=== PATIENT | female | born 1945 | race Caucasian/White ===

== ENCOUNTER 2018-10-16 15:57 | Outpatient (REF) | payer MEDICARE, BC, SELFPAY ==
[2018-10-16 21:02] LABS: COMMENT (LAB VIEW ONLY) 125.28 mg/dL
[2018-10-16 21:07] LABS: Anion Gap 9.3 mmol/L (3-11); BUN 12 mg/dL (7-18); CO2 30.7 mmol/L (21.0-32.0); CREATININE 0.68 mg/dL (0.55-1.02); Calcium 9.5 mg/dL (8.5-10.1); Chloride 98 mmol/L (98-107); Glucose 208 mg/dL (70-100); Potassium 4.6 mmol/L (3.5-5.1); Sodium 138 mmol/L (136-145); TSH 2.16 uIU/mL (0.358-3.74)
== END 2018-10-16 16:17 ==
LOC: NCHCN 15:57
PROVIDERS: PCP Internal Medicine; Visit Provider Registered Nurse
DX: E03.9 Hypothyroidism, unspecified (principal); E10.9 Type 1 diabetes mellitus without complications
CPT/HCPCS: 80048; 82043; 82570; 84443

== ENCOUNTER 2019-11-16 15:22 | Outpatient (REF) | payer MEDICARE, BC, SELFPAY ==
[2019-11-16 21:40] LABS: Anion Gap 9.2 mmol/L (3-11); BUN 10 mg/dL (7-18); CO2 27.8 mmol/L (21.0-32.0); CREATININE 0.71 mg/dL (0.55-1.02); Calcium 9.7 mg/dL (8.5-10.1); Chloride 101 mmol/L (98-107); Glucose 126 mg/dL (74-106); Sodium 138 mmol/L (136-145)
[2019-11-16 21:57] LABS: COMMENT (LAB VIEW ONLY) 127.81 mg/dL; Microalb ug/mg Crea 7.9 ug/mg Cr
== END 2019-11-16 15:42 ==
LOC: NCHCN 15:22
PROVIDERS: PCP Internal Medicine; Visit Provider Registered Nurse
DX: E10.9 Type 1 diabetes mellitus without complications (principal)
CPT/HCPCS: 80048; 82043; 82570

== ENCOUNTER 2020-06-27 14:16 | Outpatient (REF) | payer MEDICARE, BC, SELFPAY ==
[2020-06-27 13:48] LABS: TSH (W/Ref FT4) 0.88 uIU/mL (0.36-3.74)
== END 2020-06-27 14:36 ==
LOC: NCHCN 14:16
PROVIDERS: PCP Internal Medicine; Visit Provider Registered Nurse
DX: E03.9 Hypothyroidism, unspecified (principal)
CPT/HCPCS: 84443

== ENCOUNTER 2020-12-04 13:09 | Outpatient (REF) | payer MEDICARE, BC, SELFPAY ==
[2020-12-04 14:02] LABS: Anion Gap 9.2 mmol/L (3-11); BUN 9 mg/dL (7-18); CO2 28.8 mmol/L (21.0-32.0); CREATININE 0.6 mg/dL (0.55-1.02); Calcium 9.3 mg/dL (8.5-10.1); Chloride 103 mmol/L (98-107); Glucose 129 mg/dL (74-106); Potassium 4.5 mmol/L (3.5-5.1); Sodium 141 mmol/L (136-145)
[2020-12-04 14:27] LABS: COMMENT (LAB VIEW ONLY) 49.04 mg/dL; Microalb ug/mg Crea 7.7 ug/mg Cr
== END 2020-12-04 13:10 | disposition home or self-care (01) ==
LOC: NCHCN 13:09
PROVIDERS: PCP Internal Medicine; Visit Provider Registered Nurse
DX: E10.9 Type 1 diabetes mellitus without complications (principal); Z68.27 Body mass index [BMI] 27.0-27.9, adult
CPT/HCPCS: 80048; 82043; 82570

== ENCOUNTER 2021-12-07 14:41 | Outpatient (REF) | payer MEDICARE, SELFPAY ==
[2021-12-07 15:58] LABS: COMMENT (LAB VIEW ONLY) 27.44 mg/dL
== END 2021-12-07 14:42 | disposition home or self-care (01) ==
LOC: NCHCN 14:41
PROVIDERS: PCP Internal Medicine; Visit Provider Nurse Practitioner Family
DX: E10.9 Type 1 diabetes mellitus without complications (principal)
CPT/HCPCS: 82043; 82570

== ENCOUNTER 2022-03-12 15:06 | Outpatient (REF) | payer MEDICARE, SELFPAY ==
[2022-03-12 15:53] LABS: HCT 44.3 % (36.0-46.0); HGB 15.3 g/dL (11.2-15.7); MCH 36.3 pg (27.0-33.0); MCHC 34.5 % (32.0-36.0); MCV 105 fL (80-95); MPV 9.9 fL (8.0-11.0); Platelet Count 326 10^3/uL (130-400); RBC 4.22 10^6/uL (3.93-5.22); RDW 12.5 % (11.7-14.6); RDW-SD 48.6 fL; WBC 7.06 10^3/uL (4.4-10.8)
[2022-03-12 16:33] LABS: Hemoglobin A1C 7.5 % (<5.7)
[2022-03-12 16:39] LABS: ALT 24 U/L (14-59); AST 19 U/L (15-37); Albumin 3.5 g/dL (3.4-5.0); Alkaline Phosphatase 113 U/L (46-116); Anion Gap 8.6 mmol/L (3-11); BUN 13 mg/dL (7-18); Bilirubin, Total 0.4 mg/dL (0.2-1.0); CO2 29.4 mmol/L (21.0-32.0); CREATININE 0.6 mg/dL (0.55-1.02); Calcium 9.4 mg/dL (8.5-10.1); Calculated LDL 73 mg/dL (<100); Chloride 101 mmol/L (98-107); Cholesterol 144 mg/dL (<200); Estimated GFR 93.55 (mL/min/1.73m2); Glucose 218 mg/dL (74-106); HDL Cholesterol 52 mg/dL (40-60); Potassium 4.2 mmol/L (3.5-5.1); Sodium 139 mmol/L (136-145); TSH 0.75 uIU/mL (0.36-3.74); Total Protein 7.1 g/dL (6.4-8.2); Triglyceride 99 mg/dL (<150)
[2022-03-12 22:36] LABS: Albumin, Ur < 0.6 mg/dL (See Note); Creatinine, Ur 35.3 mg/dL (See Note)
== END 2022-03-12 15:07 | disposition home or self-care (01) ==
LOC: NCHCN 15:06
PROVIDERS: PCP Internal Medicine; Visit Provider Nurse Practitioner Family
DX: E10.65 Type 1 diabetes mellitus with hyperglycemia (principal); E03.9 Hypothyroidism, unspecified
CPT/HCPCS: 80053; 80061; 85027; 82043; 82570; 83036; 84443

== ENCOUNTER → 2022-04-19 01:53 | Outpatient (CLI) | payer MEDICARE, SELFPAY ==
--- NOTE | 2022-04-19 10:45 | DI.MRI_ITS ---
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 COMPARISON: No exams were available for comparison FINDINGS: VENTRICLES AND EXTRA AXIAL SPACES: Normal in size and morphology for the patient's age. MIDLINE SHIFT: None. CEREBRAL PARENCHYMA: Moderate atrophy, greater in the frontal lobes. Scattered high signal foci in t he white matter consistent with small vessel disease. No focus of restricted diffusion to suggest ac freddie infarct. No space-occupying lesion identified. HEMORRHAGE: None. BRAINSTEM/CEREBELLUM: Normal. VISUALIZED PARANASAL SINUSES/MASTOIDS:Clear. [place] OF CISSE: Normal flow void. PITUITARY GLAND: Unremarkable. OTHER FINDINGS: None. IMPRESSION: Atrophy greatest in the frontal lobes. White matter changes of small vessel disease. DATA REPOSITORY:
== END ==
PROVIDERS: PCP Nurse Practitioner Family; Visit Provider Nurse Practitioner Family
DX: G31.84 Mild cognitive impairment of uncertain or unknown etiology (principal)
CPT/HCPCS: 70551

== ENCOUNTER 2022-09-13 09:39 | Outpatient (REF) | payer MEDICARE, SELFPAY ==
[2022-09-13 15:45] LABS: Calculated LDL 65 mg/dL (<100); Cholesterol 140 mg/dL (<200); HDL Cholesterol 59 mg/dL (40-60); Triglyceride 83 mg/dL (<150)
== END 2022-09-13 09:40 | disposition home or self-care (01) ==
LOC: LBN 09:39
PROVIDERS: PCP Nurse Practitioner Family; Visit Provider Internal Medicine Endocrinology, Diabetes & Metabolism
DX: E11.65 Type 2 diabetes mellitus with hyperglycemia (principal)
CPT/HCPCS: 80061

== ENCOUNTER 2023-05-16 22:26 | Outpatient (REF) | payer MEDICARE, SELFPAY ==
[2023-05-16 21:59] LABS: COMMENT (LAB VIEW ONLY) 127.63 mg/dL; Microalb ug/mg Crea 12.1 ug/mg Cr
== END 2023-05-16 22:27 | disposition home or self-care (01) ==
LOC: NCHCN 22:26
PROVIDERS: PCP Nurse Practitioner Family; Visit Provider Nurse Practitioner Family
DX: E10.9 Type 1 diabetes mellitus without complications (principal)
CPT/HCPCS: 82043; 82570

== ENCOUNTER 2023-05-27 20:53 | Outpatient (REF) | payer MEDICARE, SELFPAY ==
[2023-05-27 20:28] LABS: Abs Immature Grans 0.01 10^3/uL (0.0-0.06); Absolute Basophil Count 0.08 10^3/uL (0.0-0.2); Absolute Eosinophil Count 0.11 10^3/uL (0.0-0.7); Absolute Neutrophil Count 6.75 10^3/uL (1.2-6.7); Eosinophils % 1.3; HCT 44.4 % (36.0-46.0); HGB 14.5 g/dL (11.2-15.7); Immature Grans % 0.1; MCH 29.8 pg (27.0-33.0); MCHC 32.7 % (32.0-36.0); MCV 91 fL (80-95); MPV 10.5 fL (8.0-11.0); Monocytes % 4.8; Neutrophils % 80.8; Platelet Count 501 10^3/uL (130-400); RBC 4.86 10^6/uL (3.93-5.22); RDW 11.9 % (11.7-14.6); RDW-SD 39.8 fL; WBC 8.35 10^3/uL (4.4-10.8)
[2023-05-27 20:46] LABS: ALT 72 U/L (14-59); AST 36 U/L (15-37); Albumin 2.9 g/dL (3.4-5.0); Alkaline Phosphatase 489 U/L (46-116); Anion Gap 13.9 mmol/L (3-11); BUN 13 mg/dL (7-18); Bilirubin, Total 1.1 mg/dL (0.2-1.0); CO2 25.1 mmol/L (21.0-32.0); CREATININE 0.9 mg/dL (0.55-1.02); Calcium 9.7 mg/dL (8.5-10.1); Chloride 96 mmol/L (98-107); Estimated GFR 66.26 (mL/min/1.73m2); Glucose 385 mg/dL (74-106); Potassium 4.4 mmol/L (3.5-5.1); Sodium 135 mmol/L (136-145); Total Protein 7.4 g/dL (6.4-8.2)
== END 2023-05-27 20:54 | disposition home or self-care (01) ==
LOC: NCHCN 20:53
PROVIDERS: PCP Nurse Practitioner Family; Visit Provider Family Medicine
DX: R11.10 Vomiting, unspecified (principal)
CPT/HCPCS: 80053; 85025

== ENCOUNTER 2024-03-04 13:14 | Inpatient (IN) | payer MEDICARE, SELFPAY ==
[2024-03-04] VITALS (53 sets, daily range): BP systolic 114–127; BP diastolic 53–70; PULSE 83–108; RESP 14–18; TEMP 36.6–36.9; O2SAT 94–98
--- NOTE | 2024-03-04 13:30 | RT.EKG_ITS ---
APPROVED REPORT Exam: Resting ECG Reason for Exam: Tachy, electrolyte derangements Patient Location: E HR:84 bpm ECG Measurements Heart Rate 84 AXIS VT 126 P -38 QRSd 84 QRS 39 QT 353 T 19 QTc 418 Conclusion Sinus rhythm, rate 84 biphasic/inverted P waves inferior leads No STEMI
--- NOTE | 2024-03-04 13:40 | W.ED.GENAD ---
Discharge Plan Disposition Patient Disposition: Admit to [facility] Condition: Stable Discharge Details Chief Complaint: Nausea/Vomit/Diar Clinical Impression: Choledocholithiasis, Diabetes mellitus with ketosis, Jaundice, Elevated lipase Primary Care Provider: Lisa Sullivan ED Provider: Addis Londono Home Meds and New Rx's Prescriptions: No Action insulin aspart U-100 100 unit/mL cartridge See Rx Instructions SUBCUT .COMPLEX Rx Instructions: sliding scale subcutaneously; insulin glargine [Lantus Solostar U-100 Insulin] 100 unit/mL (3 mL) insulin pen 9 unit SUBCUT BID Patient Comments: INJECT 8 UNITS UNDER THE SKIN EVERY MORNING AND 7 UNITS EVERY EVENING levothyroxine 50 mcg tablet 50 mcg PO DAILY Patient Comments: TAKE 1 TABLET BY MOUTH EVERY DAY lisinopril 10 mg tablet 5 mg PO DAILY Patient Comments: TAKE 1/2 TABLET BY MOUTH EVERY DAY cyanocobalamin (vitamin B-12) 1,000 mcg tablet 1,000 mcg PO DAILY Patient Comments: TAKE 1 TABLET BY MOUTH DAILY lovastatin 40 mg tablet 40 mg PO DAILY Patient Comments: TAKE 1 TABLET BY MOUTH EVERY NIGHT aspirin 81 mg tablet,delayed release (DR/EC) 81 mg PO DAILY HPI General Mode of arrival: ambulatory. Date/Time Provider Initiated Documentation: 03/04/24 13:18. Limitations to Documentation: no limitations. Information obtained by: patient, family and old records reviewed. HPI Narrative: HPI: This is a 78-year-old female patient with a past medical history significant for type 1 diabetes, hypertension, hypothyroid, and hyperlipidemia, presenting for evaluation of vomiting and dehydration. The patient reports that since Tuesday she has noted decreased p.o. intake, nonbloody, nonbilious emesis, and feels generally weak and unwell. She states that she has not noted any fevers, did not have any food exposures, travel history, or other sick contacts prior to the onset of the symptoms. She is not experiencing headache, abdominal pain, and has not had diarrhea. Last normal stool 2 days ago, no diarrhea or blood in her stool noted. The patient reports that she has been taking her insulin, states that she tends to run high, has a history of DKA as recently as 2020. The patient's daughter reports that she is concerned that the patient's hydration and glucose have become uncontrolled, which has happened in the past. She also notes that the patient has a history of turning yellow when she is sick, and had some issues with her liver in the past. She has noted that her skin appears slightly yellow compared to baseline. Exam: Gen: Awake and alert, in no apparent distress HEENT: PERRL Neck: Supple Lungs: No apparent respiratory distress, normal respiratory effort. Lungs are clear and equal bilaterally without wheezes, rhonchi, rales CV: Appears well perfused, heart with tachycardic rate but regular rhythm, strong distal pulses Abdomen: Non-distended, soft, nontender to palpation with no rigidity, rebound, guarding MSK: Moves 4 extremities without apparent limitation in ROM Skin: Visualized skin without rashes, cyanosis. The patient is notably jaundiced with yellow discoloration of her skin. Neuro: Slightly shuffling gait, no obvious focal deficits or facial asymmetry. Speaks in full, clear sentences. Psych: Appropriate for situation. MDM: This is a 78-year-old female patient presenting for evaluation of vomiting and dehydration. My differential includes but is not limited to diabetic ketoacidosis, HHS, euglycemic DKA. Could certainly consider metabolic and electrolyte derangements, kidney injury, liver dysfunction, and gallbladder disease. Considered pancreatitis and pancreatic mass, as well as other intra-abdominal pathology such as bowel obstruction, mesenteric ischemia, appendicitis, diverticulitis, aortic disease, which are less consistent with the patient's history of physical examination. Considered urinary tract infection, pyelonephritis, renal stone. No fevers to suggest sepsis or bacteremia, no alteration of mental status or nuchal rigidity to suggest meningitis or encephalitis. I considered gastroenteritis, though the patient is without diarrhea, and has not had sick contacts to suggest infectious diarrheas. We will obtain laboratory studies to include CBC, CMP, lipase, troponin, VBG, and urinalysis. I will provide the patient with a liter of IV fluids and a dose of Zofran for initial symptomatic management and rehydration. Will obtain an EKG. ED Course: I independently interpreted the patient's EKG, which shows a normal sinus rhythm without evidence of ischemia, interval abnormality, or ectopy. I reviewed her laboratory studies, which are significant for mild leukocytosis to 11.9, no anemia or thrombocytopenia. Chemistry panel demonstrates mild hypokalemia to 3.4, a small anion gap to 14 with no decrease in her bicarb. BUN is 32, creatinine 1, and her BUN to creatinine ratio greater than 20-1 is suggestive of a prerenal azotemia. The patient has an elevated glucose to 258, which is largely within the range of her baseline compared to her home glucose monitor. She has a notable elevation in her bilirubin to 9, with a transaminitis and an elevated alkaline phosphatase to 765. The patient has not elevation in her lipase greater than 375, and despite her lack of abdominal tenderness I am concerned for gallstone pancreatitis. I obtained blood cultures, and will obtain a CT abdomen pelvis. I did review the patient's urinalysis, which demonstrates ketones, large bilirubin, trace leukocyte esterase and pyuria with few bacteria. She does have glucosuria. VBG with a pH of 7.4, pCO2 37, consistent with ketosis without acidosis. I reviewed the patient CT scan, which is concerning for choledocholithiasis with a bile duct stone and evidence of gallbladder inflammatory changes. Pancreas is noted to be normal, I provided the patient with a dose of Zosyn, and discussed the case with [facility] general surgery as well as [facility] GI. The patient will be admitted to our facility for antibiosis, hydration, and will have a down and back procedure at [facility] for ERCP with GI on Tuesday or Tuesday. Patient remained hemodynamically appropriate while under my care, was transferred from this department without incident. Addis Londono MD Related Data Home Medications ?Medication ?Instructions ?Recorded ?Confirmed aspirin 81 mg tablet,delayed 81 mg PO DAILY 03/04/24 03/04/24 release cyanocobalamin (vitamin B-12) 1,000 mcg PO DAILY 03/04/24 03/04/24 1,000 mcg tablet insulin aspart U-100 100 unit/mL See Rx Instructions subcut .COMPLEX 03/04/24 03/04/24 subcutaneous cartridge insulin glargine 100 unit/mL (3 9 unit subcut BID 03/04/24 03/04/24 mL) subcutaneous pen (Lantus Solostar U-100 Insulin) levothyroxine 50 mcg tablet 50 mcg PO DAILY 03/04/24 03/04/24 lisinopril 10 mg tablet 5 mg PO DAILY 03/04/24 03/04/24 lovastatin 40 mg tablet 40 mg PO DAILY 03/04/24 03/04/24 Allergies Allergy/AdvReac Type Severity Reaction Status Date / Time No Known Allergies Allergy Unverified 03/04/24 13:17 General Stated Complaint: Nausea/Vomit/Diar LINDA: 3 Course Vital Signs Vital signs: Vital Signs Temperature 36.6 C 03/04/24 13:14 Pulse 108 H 03/04/24 13:14 Respiratory Rate 14 03/04/24 13:14 Blood Pressure 114/70 03/04/24 13:14 Pulse Oximetry 94 03/04/24 13:14 Temperature 36.6 C 03/04/24 13:14 Pulse 108 H 03/04/24 13:14 Respiratory Rate 14 03/04/24 13:14 Blood Pressure 114/70 03/04/24 13:14 Pulse Oximetry 94 03/04/24 13:14 Oxygen Delivery Method Room Air 03/04/24 13:14 Oxygen Flow Rate 0 03/04/24 13:14 Pain Level 0 03/04/24 13:14 Medical Decision Making Quality:SDOH Health Related Social Needs: No Data to Display PFSH All Active Problems (Updated 03/04/24 @ 17:18 by Addis Londono MD) Elevated lipase (Acute) Jaundice (Acute) Diabetes mellitus with ketosis (Acute) Choledocholithiasis (Acute) Social History (System 03/30/22 @ 09:16 by Shanelle Richmond) Smoking/Tobacco Use Status: Former Tobacco Use Smoking risk assessment performed?: Yes Alcohol Intake: never Drug use: Never Housing: house Do you feel safe at home: Yes Do you feel safe in your relationship?: Yes
[2024-03-04 13:58] LABS: BE (Venous) -1 mmol/L (-2-3); HCO3 (Venous) 24 mmol/L (23-28); O2 Sat (Venous) 80 %; TCO2 (Venous) 21 mmol/L (24-29); pCO2 (Venous) 37 mmHg (41-51); pH (Venous) 7.41 (7.31-7.41); pO2 (Venous) 44 mmHg
[2024-03-04] MEDS: Normal Saline 1,000 ML 1000 ML IV (13:58)
[2024-03-04 14:00] LABS: Abs Immature Grans 0.07 10^3/uL (0.0-0.06); Absolute Basophil Count 0.05 10^3/uL (0.0-0.2); Absolute Eosinophil Count 0.01 10^3/uL (0.0-0.7); Absolute Monocyte Count 0.95 10^3/uL (0.1-0.8); Absolute Neutrophil Count 9.89 10^3/uL (1.2-6.7); Basophils % 0.4 %; Eosinophils % 0.1 %; HCT 42.1 % (36.0-46.0); Immature Grans % 0.6 %; MCHC 33.3 % (32.0-36.0); MCV 90 fL (80-95); MPV 10.1 fL (8.0-11.0); Neutrophils % 82.9 %; Platelet Count 321 10^3/uL (130-400); RBC 4.66 10^6/uL (3.93-5.22); RDW 13.3 % (11.7-14.6); RDW-SD 44.1 fL; WBC 11.93 10^3/uL (4.4-10.8)
[2024-03-04 14:03] LABS: Absolute Lymphocyte Count 0.95 10^3/uL (1.2-3.4)
[2024-03-04 14:04] LABS: Bilirubin Large (Negative); Blood Negative (Negative); Clarity Clear (Clear); Glucose >=1000 mg/dL (Negative); Ketones >=160 mg/dL (Negative); Leukocyte Esterase Trace (Negative); Nitrite Negative (Negative); Specific Gravity 1.025 (1.005-1.025); pH 5.5 (5-8)
[2024-03-04 14:13] LABS: Bacteria Few HPF (Negative); Crystals Few Amorphous HPF (Negative); Epithelial Cells Few HPF (Negative); Mucus Moderate (Negative); Other Cells Few Transitional (Negative)
[2024-03-04 14:14] LABS: C & S Indicated? Yes; Casts 5-10 Hyaline LPF (Negative)
--- NOTE | 2024-03-04 14:15 | DI.CT_ITS ---
Exam(s) CT ABDOMEN PELVIS W EXAM: CT ABDOMEN PELVIS W CLINICAL HISTORY: Eval pancreatitis, gallbladder. TECHNIQUE: Imaging Protocol: Axial computed tomography images with coronal and sagittal reformatted images were created and reviewed CONTRAST MATERIAL: Intravenous: Omnipaque 350 Contrast volume:85 ml Oral: / no COMPARISON: No exams were available for comparison FINDINGS: ABDOMEN and PELVIS: Lung Bases: No acute findings. Liver: Normal density. No suspicious mass. Gallbladder and biliary tract: Gallbladder appears mildly distended. Mild wall thickening and hypere trae. The common bile duct is dilated to 10 millimeters. At least 1 stone is noted within the common bile duct. There is a stable small stone in the gallbladder neck. Pancreas: Normal density. No abnormal calcifications or inflammatory process. No evidence of mass. Spleen: Normal. Kidneys: Normal size, contour and axis. No radiodense stones. No obstructive uropathy. No suspicious masses seen. Adrenal glands: No masses seen. Vasculature: Abdominal aorta non-dilated. Soft tissues: Unremarkable. Bladder: No gross wall thickening. No calculi.No focal mass. Bowel: No obstruction. No bowel wall thickening. Appendix normal. Peritoneal cavity: No ascites. No focal collection. No mesenteric inflammatory response. Bones: Scoliosis and prominent degenerative disc changes in the lumbar spine. Reproductive organs: Status post hysterectomy. Lymph nodes: No pathologically enlarged lymph nodes. IMPRESSION:: Stone in gallbladder neck. Gallbladder mildly distended with thickened, hyperemic wall , consistent with acute cholecystitis. At least 1 stone stone is also noted in the common bile duct. No bile duct dilated to 10 millimeters. No definite evidence of pancreatitis. RADIATION DOSE DELIVERED: Total DLP DATA REPOSITORY: All CT scans at this facility are submitted to the National Radiology Data Registry (NRDR) Dose Index Registry (DIR) with the [employer] (ACR). RADIATION OPTIMIZATION: All CT scans at this facility use at least one of these dose optimization te chniques: automated exposure control; mA and/or kV adjustment per patient size (includes targeted exa ms where dose is matched to clinical indication); or iterative reconstruction.
[2024-03-04 14:18] LABS: ALT 137 U/L (14-59); AST 62 U/L (15-37); Albumin 2.4 g/dL (3.4-5.0); Alkaline Phosphatase 765 U/L (46-116); Anion Gap 14.3 mmol/L (3-11); BUN 32 mg/dL (7-18); Bilirubin, Total 9.09 mg/dL (0.2-1.0); CO2 24.7 mmol/L (21.0-32.0); Chloride 94 mmol/L (98-107); Estimated GFR 58.02 (mL/min/1.73m2); Glucose 258 mg/dL (74-106); Lipase > 375 U/L (16-77); Magnesium 2.2 mg/dL (1.8-2.4); Potassium 3.4 mmol/L (3.5-5.1); Sodium 133 mmol/L (136-145); Total Protein 6.7 g/dL (6.4-8.2); Troponin I 13 ng/L (<or=51)
[2024-03-04 15:10] LABS: Troponin I 13 ng/L (<or=51)
[2024-03-04] MEDS: Normal Saline - Diluent 50 ML VIAL IJ (15:22)
[2024-03-04] MEDS: Omnipaque 350 MG/ML 100 ML BTL 85 ML IJ (15:23)
--- NOTE | 2024-03-04 16:09 | DI.VRAD_ITS ---
PROCEDURE INFORMATION: Exam: CT Abdomen And Pelvis With Contrast Exam date and time: 03/04/2024 3:19 PM Age: 78 years old Clinical indication: Other: Eval pancreatitis, gallbladder TECHNIQUE: Imaging protocol: Computed tomography of the abdomen and pelvis with contrast. Contrast material: OMNIPAQUE 350; Contrast volume: 85 ml; Contrast route: INTRAVENOUS (IV); COMPARISON: No relevant prior studies available. FINDINGS: Lungs: Mild bibasilar atelectasis or fibrosis. Heart: Cardiomegaly. Diaphragm: Small hiatal hernia. Liver: Normal. No mass. Gallbladder and biliary ducts: The gallbladder wall appears slightly hyperemic. There may be a small gallstone the gallbladder neck level there is mild pericholecystic inflammatory change. Next lines Pancreas: Normal. No ductal dilation. Spleen: Normal. No splenomegaly. Adrenal glands: Normal. No mass. Kidneys and ureters: Normal. No hydronephrosis. Stomach and bowel: Unremarkable. No obstruction. No mucosal thickening. Appendix: No evidence of appendicitis. Intraperitoneal space: Unremarkable. No free air. No significant fluid collection. Vasculature: Unremarkable. No abdominal aortic aneurysm. Lymph nodes: Unremarkable. No enlarged lymph nodes. Urinary bladder: Unremarkable as visualized. Reproductive: Status post hysterectomy. Bones/joints: Unremarkable. No acute fracture. Soft tissues: Small, containing periumbilical hernia. IMPRESSION: Abnormal gallbladder findings concern for acute cholecystitis. Dictated and Authenticated by: Heidy Acuña MD. Ordering:SUSAN Sauceda MD
[2024-03-04] MEDS: PIPERACILLIN/TAZO 3.375 GM in Normal Saline 50 ML IVPB (17:16)
--- NOTE | 2024-03-04 17:19 | NUR.NOTE ---
Nursing Note: pt denies pain, denies nausea. Accepts drink and states she needs nothing else at this time. Understands plan for admission with ERCP either Tuesday or Tuesday.
--- NOTE | 2024-03-04 17:56 | W.PC.ACHO ---
Registration Status: Primary Language: Preferred Language: ED Information & Data Chief Complaint Nausea/Vomit/Diar 03/04/24 13:44 Triage Note vomiting since Tuesday per 03/04/24 13:14 daughter. + weakness no dizziness. No nausea/ diarrhea Most Recent Vital Signs Temperature 36.6 C 03/04/24 13:14 Pulse 108 H 03/04/24 13:14 Respiratory Rate 14 03/04/24 13:14 Blood Pressure 114/70 03/04/24 13:14 Pulse Oximetry 94 03/04/24 13:14 Oxygen Delivery Method Room Air 03/04/24 13:14 Oxygen Flow Rate 0 03/04/24 13:14 Pain Level 0 03/04/24 13:14 Allergies No Known Allergies Allergy (Unverified 03/04/24 13:17) Active Medications Generic Name Dose Route Start Last Admin Trade Name Nolbertoq PRN Reason Stop Dose Admin Iohexol 85 ml 03/04/24 15:30 03/04/24 15:23 Omnipaque 350 Mg/Ml 100 Ml Btl IJ 04/03/24 23:59 85 ml DIRECTED ANA Administration Sodium Chloride 50 ml 03/04/24 15:30 03/04/24 15:22 Normal Saline - Diluent 50 Ml Vial IJ 50 ml .FOR DI USE ANA Administration IV IV Catheter Type [Left Saline Lock Antecubital] IV Catheter Gauge [Left 20 Antecubital] Diet Orders Category Date Time Status Nothing Per Oral [DIET] Nutrition 03/04/24 Dinner Active Diagnostics 03/04/24 03/04/24 03/04/24 Range/Units 16:35 14:44 13:52 WBC 11.93 H (4.4-10.8) 10^3/uL RBC 4.66 (3.93-5.22) 10^6/uL Hgb 14.0 (11.2-15.7) g/dL Hct 42.1 (36.0-46.0) % MCV 90 (80-95) fL MCH 30.0 (27.0-33.0) pg MCHC 33.3 (32.0-36.0) % RDW 13.3 (11.7-14.6) % Plt Count 321 (130-400) 10^3/uL MPV 10.1 (8.0-11.0) fL Immature Gran % 0.6 % Neutrophils % 82.9 % Lymphocytes % 8.0 % Monocytes % 8.0 % Eosinophils % 0.1 % Basophils % 0.4 % Nucleated RBC % 0.0 (0.0-0.3) % Absolute Neutrophils 9.89 H (1.2-6.7) 10^3/uL Absolute Lymphocytes 0.95 L (1.2-3.4) 10^3/uL Absolute Monocytes 0.95 H (0.1-0.8) 10^3/uL Absolute Eosinophils 0.01 (0.0-0.7) 10^3/uL Absolute Basophils 0.05 (0.0-0.2) 10^3/uL VBG pH 7.41 (7.31-7.41) VBG pCO2 37 L (41-51) mmHg VBG pO2 44 mmHg VBG HCO3 24 (23-28) mmol/L VBG Total CO2 21 L (24-29) mmol/L VBG O2 Saturation 80 % VBG Base Excess -1 (-2-3) mmol/L Sodium 133 L (136-145) mmol/L Potassium 3.4 L (3.5-5.1) mmol/L Chloride 94 L (98-107) mmol/L Carbon Dioxide 24.7 (21.0-32.0) mmol/L Anion Gap 14.3 H (3-11) mmol/L BUN 32 H (7-18) mg/dL Creatinine 1.0 (0.55-1.02) mg/dL Est GFR (CKD-EPI 2020) 58.02 (mL/min/1.73m2) Glucose 258 H (74-106) mg/dL Calcium 10.0 (8.5-10.1) mg/dL Magnesium 2.2 (1.8-2.4) mg/dL Total Bilirubin 9.09 H (0.2-1.0) mg/dL AST 62 H (15-37) U/L ALT 137 H (14-59) U/L Alkaline Phosphatase 765 H (46-116) U/L Troponin I Cancelled 13 13 (<or=51) ng/L Total Protein 6.7 (6.4-8.2) g/dL Albumin 2.4 L (3.4-5.0) g/dL Lipase > 375 H Urine Color (Yellow) Urine Clarity (Clear) Urine pH (5-8) Ur Specific [place] (1.005-1.025) Urine Protein (Neg-Trace) mg/dL Urine Ketones (Negative) mg/dL Urine Blood (Negative) Urine Nitrite (Negative) Urine Bilirubin (Negative) Urine Urobilinogen (Up to 0.2) mg/dL Ur Leukocyte Esterase (Negative) Urine RBC (0-2) HPF Urine WBC (0-5) HPF Ur Epithelial Cells (Negative) HPF Urine Crystals (Negative) HPF Urine Bacteria (Negative) HPF Urine Casts (Negative) LPF Urine Mucus (Negative) Urine Other (Negative) Ur Culture Indicated? Urine Glucose (Negative) mg/dL 03/04/24 03/04/24 Range/Units 13:44 13:42 WBC (4.4-10.8) 10^3/uL RBC (3.93-5.22) 10^6/uL Hgb (11.2-15.7) g/dL Hct (36.0-46.0) % MCV (80-95) fL MCH (27.0-33.0) pg MCHC (32.0-36.0) % RDW (11.7-14.6) % Plt Count (130-400) 10^3/uL MPV (8.0-11.0) fL Immature Gran % % Neutrophils % % Lymphocytes % % Monocytes % % Eosinophils % % Basophils % % Nucleated RBC % (0.0-0.3) % Absolute Neutrophils (1.2-6.7) 10^3/uL Absolute Lymphocytes (1.2-3.4) 10^3/uL Absolute Monocytes (0.1-0.8) 10^3/uL Absolute Eosinophils (0.0-0.7) 10^3/uL Absolute Basophils (0.0-0.2) 10^3/uL VBG pH (7.31-7.41) VBG pCO2 (41-51) mmHg VBG pO2 mmHg VBG HCO3 (23-28) mmol/L VBG Total CO2 (24-29) mmol/L VBG O2 Saturation % VBG Base Excess (-2-3) mmol/L Sodium (136-145) mmol/L Potassium (3.5-5.1) mmol/L Chloride (98-107) mmol/L Carbon Dioxide (21.0-32.0) mmol/L Anion Gap (3-11) mmol/L BUN (7-18) mg/dL Creatinine (0.55-1.02) mg/dL Est GFR (CKD-EPI 2020) (mL/min/1.73m2) Glucose (74-106) mg/dL Calcium (8.5-10.1) mg/dL Magnesium (1.8-2.4) mg/dL Total Bilirubin (0.2-1.0) mg/dL AST (15-37) U/L ALT (14-59) U/L Alkaline Phosphatase (46-116) U/L Troponin I (<or=51) ng/L Total Protein (6.4-8.2) g/dL Albumin (3.4-5.0) g/dL Lipase Cancelled Urine Color [place] (Yellow) Urine Clarity Clear (Clear) Urine pH 5.5 (5-8) Ur Specific [place] 1.025 (1.005-1.025) Urine Protein 30 H (Neg-Trace) mg/dL Urine Ketones >=160 H (Negative) mg/dL Urine Blood Negative (Negative) Urine Nitrite Negative (Negative) Urine Bilirubin Large H (Negative) Urine Urobilinogen 4.0 H (Up to 0.2) mg/dL Ur Leukocyte Esterase Trace H (Negative) Urine RBC 3-5 H (0-2) HPF Urine WBC 10-20 H (0-5) HPF Ur Epithelial Cells Few (Negative) HPF Urine Crystals Few Amorphous (Negative) HPF Urine Bacteria Few (Negative) HPF Urine Casts 5-10 Hyaline (Negative) LPF Urine Mucus Moderate (Negative) Urine Other Few Transitional (Negative) Ur Culture Indicated? Yes Urine Glucose >=1000 H (Negative) mg/dL 03/04/24 14:44 Blood Culture - Pending Blood 03/04/24 14:29 Blood Culture - Pending Blood 03/04/24 13:42 Urine Culture - Pending Urine - Reflex from Ua Intake and Output - 24 Hour Total 03/04/24 13:14 thru 03/04/24 15:48 Intake Total 1000 Balance 1000 Weight 65.771 kg Intake: IV 1000 Notes 03/04/24 17:19 Nursing Notes by Lisa Velazquez Nursing Note: pt denies pain, denies nausea. Accepts drink and states she needs nothing else at this time. Understands plan for admission with ERCP either Srinivas or Tuesday. Initialized on 03/04/24 17:19 - END OF NOTE v v v v v v v v v Sending and/or Receiving Nurses: Please use comment section below to note any information pertinent to the patient hand-off not included above. Information / Comments: Pt a/ox4, VS WNL, no pain, nausea and emesis before arrival, poor appetite, going to [facility] for Scan or Report received from: ANN Gonzalez
[2024-03-04] MEDS: FAMOTIDINE 20 MG in Normal Saline 100 ML 400 MG IVPB (18:22)
[2024-03-04] MEDS: Normal Saline Flush 10 ML SYR IVP ×2 (18:23→21:29)
--- NOTE | 2024-03-04 20:32 | W.PM.HP.N ---
Date of service: 03/04/24 Time of Service: 20:32 Assessment and Plan Assessment and plan (1) Choledocholithiasis: Status: Acute Assessment and plan: IV fluid resuscitation IV antibiotics Make arrangements for ERCP at [facility] Cholecystectomy prior to hospital discharge if OR schedule permits Pain control as needed Daily labs DVT and GI prophylax 6 (2) Jaundice: Status: Acute (3) Elevated lipase: Status: Acute (4) Diabetes mellitus with ketosis: Status: Acute Assessment and plan: Insulin sliding scale History of Present Illness History of Present Illness Chief Complaint: Vomiting Narrative: This patient is a pleasant 78-year-old female with past medical history of type 1 diabetes. The patient's daughter is at the bedside who helps provide history. The patient presented to the emergency department after 5 days of nonbilious vomiting. The patient also complains of decreased appetite. She denies any fevers, chills, chest pain, shortness of breath, abdominal pain, diarrhea or constipation. In the emergency department the patient had blood work which demonstrated mild leukocytosis, elevated total bilirubin of 9.0, elevated transaminases and evidence of prerenal azotemia. On physical examination the patient had evidence of jaundice and scleral icterus. CT scan of the abdomen demonstrated findings concerning for acute cholecystitis. The patient was subsequently admitted for IV fluid resuscitation, IV antibiotics and further care. The patient's blood work was highly suspicious for choledocholithiasis. The GI doctor at [facility] was contacted who reviewed the films. They indicated that they could see evidence of choledocholithiasis on the CT scan. They also indicated that they were willing to see the patient for a down and back ERCP either Tuesday or Tuesday. Review of Systems All systems reviewed & are unremarkable except as noted in HPI and below PFSH All Active Problems (Updated 03/04/24 @ 17:18 by Addis Londono MD) Elevated lipase (Acute) Jaundice (Acute) Diabetes mellitus with ketosis (Acute) Choledocholithiasis (Acute) Social History (System 03/30/22 @ 09:16 by Shanelle Richmond) Smoking/Tobacco Use Status: Former Tobacco Use Smoking risk assessment performed?: Yes Alcohol Intake: never Drug use: Never Housing: house Do you feel safe at home: Yes Do you feel safe in your relationship?: Yes Meds Allergies and Home Medications Allergies Allergy/AdvReac Type Severity Reaction Status Date / Time No Known Allergies Allergy Unverified 03/04/24 13:17 Home Medications ?Medication ?Instructions ?Recorded ?Confirmed ?Type aspirin 81 mg tablet,delayed 81 mg PO DAILY 03/04/24 03/04/24 History release cyanocobalamin (vitamin B-12) 1,000 mcg PO DAILY 03/04/24 03/04/24 History 1,000 mcg tablet insulin aspart U-100 100 unit/mL See Rx Instructions subcut .COMPLEX 03/04/24 03/04/24 History subcutaneous cartridge insulin glargine 100 unit/mL (3 9 unit subcut BID 03/04/24 03/04/24 History mL) subcutaneous pen (Lantus Solostar U-100 Insulin) levothyroxine 50 mcg tablet 50 mcg PO DAILY 03/04/24 03/04/24 History lisinopril 10 mg tablet 5 mg PO DAILY 03/04/24 03/04/24 History lovastatin 40 mg tablet 40 mg PO DAILY 03/04/24 03/04/24 History Exam Const General: cooperative, healthy appearing, comfortable and no acute distress Nutritional Appearance: average body habitus Orientation: alert, awake and oriented x3 Eyes Sclera: scleral abnormality Other: Scleral icterus Chest Chest: normal inspection of the chest Resp Effort & Inspection: normal respiratory effort and able to speak in complete sentences Auscultation: clear to auscultation bilaterally, no rales, no rhonchi and no wheezes Cardio Jugular venous pressure: no JVD Rate: regular rate Rhythm: regular rhythm Heart Sounds: S1 normal and S2 normal GI Inspection: normal to inspection Palpation: soft, not firm, no guarding and no hepatomegaly Percussion: normal to percussion Auscultation: normal bowel sounds Other: Excoriations Skin General skin exam: dry skin and excoriation Other: Jaundice Extrem General: normal to inspection and no clubbing, cyanosis or edema Results Labs 03/04/24 13:52 03/04/24 13:52 Labs: Laboratory Results - last 24 hr 03/04/24 03/04/24 03/04/24 13:42 13:44 13:52 WBC 11.93 H RBC 4.66 Hgb 14.0 Hct 42.1 MCV 90 MCH 30.0 MCHC 33.3 RDW 13.3 Plt Count 321 MPV 10.1 Immature Gran % 0.6 Neutrophils % 82.9 Lymphocytes % 8.0 Monocytes % 8.0 Eosinophils % 0.1 Basophils % 0.4 Nucleated RBC % 0.0 Absolute Neutrophils 9.89 H Absolute Lymphocytes 0.95 L Absolute Monocytes 0.95 H Absolute Eosinophils 0.01 Absolute Basophils 0.05 VBG pH 7.41 VBG pCO2 37 L VBG pO2 44 VBG HCO3 24 VBG Total CO2 21 L VBG O2 Saturation 80 VBG Base Excess -1 Sodium 133 L Potassium 3.4 L Chloride 94 L Carbon Dioxide 24.7 Anion Gap 14.3 H BUN 32 H Creatinine 1.0 Est GFR (CKD-EPI 2020) 58.02 Glucose 258 H Calcium 10.0 Magnesium 2.2 Total Bilirubin 9.09 H AST 62 H ALT 137 H Alkaline Phosphatase 765 H Troponin I 13 Total Protein 6.7 Albumin 2.4 L Lipase Cancelled > 375 H Urine Color [place] Urine Clarity Clear Urine pH 5.5 Ur Specific [place] 1.025 Urine Protein 30 H Urine Ketones >=160 H Urine Blood Negative Urine Nitrite Negative Urine Bilirubin Large H Urine Urobilinogen 4.0 H Ur Leukocyte Esterase Trace H Urine RBC 3-5 H Urine WBC 10-20 H Ur Epithelial Cells Few Urine Crystals Few Amorphous Urine Bacteria Few Urine Casts 5-10 Hyaline Urine Mucus Moderate Urine Other Few Transitional Ur Culture Indicated? Yes Urine Glucose >=1000 H 03/04/24 03/04/24 14:44 16:35 WBC RBC Hgb Hct MCV MCH MCHC RDW Plt Count MPV Immature Gran % Neutrophils % Lymphocytes % Monocytes % Eosinophils % Basophils % Nucleated RBC % Absolute Neutrophils Absolute Lymphocytes Absolute Monocytes Absolute Eosinophils Absolute Basophils VBG pH VBG pCO2 VBG pO2 VBG HCO3 VBG Total CO2 VBG O2 Saturation VBG Base Excess Sodium Potassium Chloride Carbon Dioxide Anion Gap BUN Creatinine Est GFR (CKD-EPI 2020) Glucose Calcium Magnesium Total Bilirubin AST ALT Alkaline Phosphatase Troponin I 13 Cancelled Total Protein Albumin Lipase Urine Color Urine Clarity Urine pH Ur Specific [place] Urine Protein Urine Ketones Urine Blood Urine Nitrite Urine Bilirubin Urine Urobilinogen Ur Leukocyte Esterase Urine RBC Urine WBC Ur Epithelial Cells Urine Crystals Urine Bacteria Urine Casts Urine Mucus Urine Other Ur Culture Indicated? Urine Glucose Last Vital Signs Temp 98.4 F 03/04/24 18:05 Pulse 83 03/04/24 18:05 Resp 18 03/04/24 18:05 BP 127/53 L 03/04/24 18:05 Pulse Ox 98 03/04/24 18:05 Time Spent Time spent with Patient: 55-74 minutes Time was spent: preparing to see the patient(eg.review tests), obtaining and/or reviewing separately otained hiistory, ordering medications,tests, procedures, referring, communicating with other health primary care nurse practitioner, indepentently interpreting results, counseling the patient and care coordination
[2024-03-04] MEDS: DEXTROSE 5%-0.45% SALINE 1,000 ML 75 ML IV (21:30)
[2024-03-05] MEDS: Insulin Aspart 300 UNITS/3 ML PEN SC ×3 (00:03→17:24)
[2024-03-05] MEDS: PIPERACILLIN/TAZO 3.375 GM in Normal Saline 50 ML IVPB ×4 (00:13→22:20)
[2024-03-05] MEDS: FAMOTIDINE 20 MG in Normal Saline 100 ML 400 MG IVPB (06:08)
[2024-03-05] MEDS: Levothyroxine 50 MCG TAB PO (06:24)
[2024-03-05 06:29] LABS: Abs Immature Grans 0.05 10^3/uL (0.0-0.06); Absolute Basophil Count 0.03 10^3/uL (0.0-0.2); Absolute Eosinophil Count 0.12 10^3/uL (0.0-0.7); Absolute Lymphocyte Count 1.09 10^3/uL (1.2-3.4); Absolute Monocyte Count 0.81 10^3/uL (0.1-0.8); Absolute Neutrophil Count 5.79 10^3/uL (1.2-6.7); Basophils % 0.4 %; Eosinophils % 1.5 %; HCT 33.1 % (36.0-46.0); HGB 11.4 g/dL (11.2-15.7); Immature Grans % 0.6 %; Lymphocytes % 13.8 %; MCH 30.6 pg (27.0-33.0); MCHC 34.4 % (32.0-36.0); MCV 89 fL (80-95); MPV 10.5 fL (8.0-11.0); Monocytes % 10.3 %; Neutrophils % 73.4 %; Platelet Count 300 10^3/uL (130-400); RBC 3.73 10^6/uL (3.93-5.22); RDW 13.4 % (11.7-14.6); RDW-SD 43.9 fL; WBC 7.89 10^3/uL (4.4-10.8)
[2024-03-05 06:36] LABS: PTT Activated 28.1 sec (23.6-32.8); Prothrombin Time 9.6 sec (9.1-11.1)
[2024-03-05 06:49] LABS: ALT 91 U/L (14-59); AST 34 U/L (15-37); Alkaline Phosphatase 589 U/L (46-116); Anion Gap 12.4 mmol/L (3-11); BUN 18 mg/dL (7-18); Bilirubin, Total 3.74 mg/dL (0.2-1.0); CO2 22.6 mmol/L (21.0-32.0); CREATININE 0.8 mg/dL (0.55-1.02); Chloride 99 mmol/L (98-107); Estimated GFR 75.84 (mL/min/1.73m2); Glucose 267 mg/dL (74-106); Lipase 130 U/L (16-77); Sodium 134 mmol/L (136-145); TSH (W/Ref FT4) 1.61 uIU/mL (0.36-3.74); Total Protein 5.5 g/dL (6.4-8.2)
[2024-03-05 06:59] LABS: Potassium 2.9 mmol/L (3.5-5.1)
[2024-03-05 07:57] VITALS: BP 122/49; PULSE 71; RESP 17; TEMP 37.2; O2SAT 94
[2024-03-05] MEDS: POTASSIUM CHLORIDE 10 MEQ/100 ML BAG 100 MEQ IVINF ×3 (08:30→17:16)
[2024-03-05] MEDS: Lisinopril 10 MG TAB 5 MG PO (09:18)
--- NOTE | 2024-03-05 10:41 | NUR.NOTE ---
Nursing Note: Report called in to [facility] for transfer for ERCP, report given to ANN Xiao at this time
--- NOTE | 2024-03-05 12:45 | W.NUTRFU ---
Date of service: 03/05/24 Time of Service: 11:00 Nutrition Note NOTE: Received nutrition consult request regarding diabetes education/mgt for this 78yo patient admitted after experiencing vomiting and weakness since Tuesday. CT scan revealed evidence of choledocholithiasis and scheduled for down and back ERCP at [facility] [place] [place] today - patient was out of room for this when visit was attempted today. Pt with PMH significant for type 1 diabetes and ordered for 18units of insulin glargine (9 AM and 9PM) and sliding scale of insulin aspart at meals. last documented A1C was 7.5 on 03/12/22. Pt with ketonuria 03/04 (>160), high anion gap, and FPG 267 this morning, blood ph of 7.41, BVG pCO2 and total CO2 low consistent with ketoacidosis. Pt is ordered for sliding scale insulin aspart currently q6h to correct. and is currently NPO. Suspect pt's acidotic state stems from vomiting and inflammation associated with her gallbladder condition and will be addressed with current protocol and treatment for choledocholithiasis. I will attempt another visit to assess need/desire for education and mgt indications once patient returns from [facility] [place] [place] and monitor po toleration/intake, labs during her admission. Time Spent in Nutritional Counseling and Treatment: 0
[2024-03-05] MEDS: Normal Saline Flush 10 ML SYR IVP ×2 (16:18→21:17)
--- NOTE | 2024-03-05 16:26 | W.PM.PROGNOT ---
Date of Service Date of service: 03/05/24 Time of Service: 16:26 Assessment and Plan Assessment and plan (1) Elevated lipase: Status: Acute Assessment and plan: Christine seems to be doing well after ERCP with sphincterotomy and stenting. I will repeat her blood work tomorrow, but based on the trend of today's labs, combined with the ERCP today, I would expect them to be normalizing. I will check a lipase to rule out any evidence of post ERCP pancreatitis. We talked about the importance of cholecystectomy to reduce likelihood of recurrent choledocholithiasis. I think she has a good understanding of that. Subjective Subjective Interval history since last seen: Hilaria says she is feeling much better this afternoon, she only has a little bit of a sore throat from the ERCP today. Otherwise, she is comfortable. Exam GI Other: Abdomen is soft and not at all tender. She is not distended. Objective Last Vital Signs Temp 99.0 F 03/05/24 07:57 Pulse 71 03/05/24 07:57 Resp 17 03/05/24 07:57 BP 122/49 L 03/05/24 07:57 Pulse Ox 94 03/05/24 07:57 Laboratory Results - last 24 hr 03/05/24 05:42 WBC 7.89 RBC 3.73 L Hgb 11.4 D Hct 33.1 L MCV 89 MCH 30.6 MCHC 34.4 RDW 13.4 Plt Count 300 MPV 10.5 Immature Gran % 0.6 Neutrophils % 73.4 Lymphocytes % 13.8 Monocytes % 10.3 Eosinophils % 1.5 Basophils % 0.4 Nucleated RBC % 0.0 Absolute Neutrophils 5.79 Absolute Lymphocytes 1.09 L Absolute Monocytes 0.81 H Absolute Eosinophils 0.12 Absolute Basophils 0.03 PT 9.6 INR 1.0 APTT 28.1 Sodium 134 L Potassium 2.9 L* Chloride 99 Carbon Dioxide 22.6 Anion Gap 12.4 H BUN 18 Creatinine 0.8 Est GFR (CKD-EPI 2020) 75.84 Glucose 267 H Calcium 9.0 Total Bilirubin 3.74 H AST 34 ALT 91 H Alkaline Phosphatase 589 H Total Protein 5.5 L Albumin 2.0 L Lipase 130 H TSH 1.61 Time Spent with Patient Time Spent with Patient: 25-34 minutes Time was spent: preparing to see the patient(eg.review tests), referring, communicating with other health pediatric care coordinator, indepentently interpreting results and counseling the patient
[2024-03-05] MEDS: DEXTROSE 5%-0.45% SALINE 1,000 ML 75 ML IV (17:45)
[2024-03-05] MEDS: FAMOTIDINE 20 MG/50 ML BAG 200 MG IV (18:32)
[2024-03-05 19:33] VITALS: BP 122/56; PULSE 71; RESP 17; TEMP 36.7; O2SAT 93
[2024-03-06] MEDS: Insulin Aspart 300 UNITS/3 ML PEN SC ×5 (00:25→23:59)
[2024-03-06] MEDS: PIPERACILLIN/TAZO 3.375 GM in Normal Saline 50 ML IVPB ×4 (04:25→23:58)
[2024-03-06] MEDS: Normal Saline Flush 10 ML SYR IVP ×3 (04:25→19:50)
[2024-03-06] MEDS: Levothyroxine 50 MCG TAB PO (05:25)
[2024-03-06] MEDS: FAMOTIDINE 20 MG/50 ML BAG 200 MG IV ×2 (05:58→18:59)
[2024-03-06 07:17] LABS: Abs Immature Grans 0.05 10^3/uL (0.0-0.06); Absolute Basophil Count 0.03 10^3/uL (0.0-0.2); Absolute Eosinophil Count 0.22 10^3/uL (0.0-0.7); Absolute Lymphocyte Count 1.12 10^3/uL (1.2-3.4); Absolute Monocyte Count 0.45 10^3/uL (0.1-0.8); Absolute Neutrophil Count 4.93 10^3/uL (1.2-6.7); Basophils % 0.4 %; Eosinophils % 3.2 %; HCT 36.5 % (36.0-46.0); HGB 12.1 g/dL (11.2-15.7); Immature Grans % 0.7 %; Lymphocytes % 16.5 %; MCH 30.6 pg (27.0-33.0); MCHC 33.2 % (32.0-36.0); MCV 92 fL (80-95); MPV 10.4 fL (8.0-11.0); Monocytes % 6.6 %; Neutrophils % 72.6 %; Platelet Count 322 10^3/uL (130-400); RBC 3.96 10^6/uL (3.93-5.22); RDW 13.4 % (11.7-14.6); RDW-SD 45.9 fL
[2024-03-06 07:56] LABS: ALT 74 U/L (14-59); AST 20 U/L (15-37); Alkaline Phosphatase 521 U/L (46-116); Anion Gap 12.6 mmol/L (3-11); BUN 6 mg/dL (7-18); Bilirubin, Direct 1.8 mg/dL (0.0-0.2); Bilirubin, Total 2.65 mg/dL (0.2-1.0); CO2 24.4 mmol/L (21.0-32.0); CREATININE 0.8 mg/dL (0.55-1.02); Calcium 9.2 mg/dL (8.5-10.1); Chloride 103 mmol/L (98-107); Estimated GFR 75.84 (mL/min/1.73m2); Glucose 264 mg/dL (74-106); Lipase 65 U/L (16-77); Sodium 140 mmol/L (136-145); Total Protein 5.9 g/dL (6.4-8.2)
[2024-03-06 08:03] LABS: Potassium 2.7 mmol/L (3.5-5.1)
[2024-03-06 08:25] VITALS: BP 122/65; PULSE 66; RESP 16; TEMP 36.2; O2SAT 99
--- NOTE | 2024-03-06 09:22 | PDOC.CMPRO ---
Date of service: 03/06/24 Time of Service: 09:22 Care Management Progress Note Progress Note Text Progress Note Text: Christine was sitting up on the side of her bed when CM met with her. She was pleasant in interaction and engaged well with CM. Christine informed CM that she lives in [place] with her daughter and son-in-law and their son. She has one other daughter who lives in [place], [place] and she has 2 sons. 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 Christine is independent at baseline and does not receive any services. She shared that her daughter does all of the cooking and also helps with transportation as she no longer drives. Christine was admitted with choledocholithoiasis. She went to [facility] [place] yesterday for a down and back ERCP. She is scheduled to have a laparoscopic cholecystectomy tomorrow, after which she believes she will be discharged. Discharge Potential Discharge Needs: Surgical F/U Appt Anticipated Barriers to Discharge: None Identified Patient/Family Education Needs: Review discharge instructions, discuss Ask Me Three Transportation: Private vehicle Plan: Anticipate Christine will be discharged home with no new services when medically cleared,. She will follow up with her surgeon and plan of care and transport with family. CM will follow and continue to support discharge planning needs. SDOH(Care Management) Screening Will the Patient Participate in the Screening?: Yes Do you worry about having a steady place to live?: no In the past 12 months, have you had to go without electric, gas, oil or water in your home?: no Have you or anyone in your house had to go without enough food to eat?: no Has lack of transportation kept you from medical appointments or from doing things needed for daily living?: no Has anyone in your support network made you feel unsafe for any reason?: no
--- NOTE | 2024-03-06 09:50 | W.PM.PROGNOT ---
Date of Service Date of service: 03/06/24 Time of Service: 09:50 Assessment and Plan Assessment and plan (1) Diabetes mellitus with ketosis: Status: Acute (2) Choledocholithiasis: Status: Acute (3) HTN (hypertension): Status: Chronic (4) Hypothyroidism (acquired): Status: Acute (5) Elevated cholesterol: Status: Chronic (6) Cholelithiasis with acute on chronic cholecystitis with biliary obstruction: Status: Acute Assessment and plan: Plan lap rao on Tuesday with Dr. Pena. The alternatives to surgery, risks, complications, and the possible need to convert to open cholecystectomy were discussed. Also bleeding, infection, pneumonia, blood clots, complications of anesthesia, damage to bowel, bladder, blood vessels, or bile ducts, liver, need for blood transfusions. Also: chronic pain, chronic diarrhea/post-rao syndrome, reoccurrence of signs and symptoms, port site hernias, adhesions.? All questions were answered, and the patient elected to proceed with surgery. 45 mins spent in direct pt care (7) S/P ERCP: (8) Hypokalemia due to loss of potassium: Status: Acute Assessment and plan: Replacement Subjective Subjective Interval history since last seen: Pt is doing well. no headaches. No CP or SOB. no productive cough. no dysuria. no leg pain or swelling. No abdominal pain or nausea. She is hungry, and would like to have some food. She moved her bowels yesterday. Exam Narrative Exam Narrative: PHYSICAL EXAM GENERAL APPEARANCE: Alert, healthy appearance, oriented, x 3,? in no acute distress HYDRATION: Well hydrated HEAD, EYES, EARS, NECK, THROAT: Head is normocephalic, pupils equal, round, reactive to light and accommodation, ocular movement intact, sclera clear and no jaundice. ?Dentition intact. No sore throat-mild sore throat from ERCP yesterday. LUNGS: normal respiration/normal chest excursion. ?Clear to auscultation bilaterally. ?No wheeze. ?HEART: Regular rate and rhythm. no murmurs EXTREMITY: No edema or cyanosis.? no leg pain, redness, swelling.? ABDOMEN: soft and non-tender to palpation.? Normal bowel sounds.? No hernias.? Objective Last Vital Signs Temp 36.2 C L 03/06/24 08:25 Pulse 66 03/06/24 08:25 Resp 16 03/06/24 08:25 BP 122/65 03/06/24 08:25 Pulse Ox 99 03/06/24 08:25 Laboratory Results - last 24 hr 03/06/24 03/06/24 03/06/24 06:18 06:18 06:18 WBC 6.80 RBC 3.96 Hgb 12.1 Hct 36.5 MCV 92 MCH 30.6 MCHC 33.2 RDW 13.4 Plt Count 322 MPV 10.4 Immature Gran % 0.7 Neutrophils % 72.6 Lymphocytes % 16.5 Monocytes % 6.6 Eosinophils % 3.2 Basophils % 0.4 Nucleated RBC % 0.0 Absolute Neutrophils 4.93 Absolute Lymphocytes 1.12 L Absolute Monocytes 0.45 Absolute Eosinophils 0.22 Absolute Basophils 0.03 Sodium Cancelled 140 Potassium Cancelled 2.7 L* Chloride Cancelled Carbon Dioxide Anion Gap BUN Creatinine Est GFR (CKD-EPI 2020) Glucose Calcium Total Bilirubin Conjugated Bilirubin AST ALT Alkaline Phosphatase Total Protein Albumin Lipase 03/06/24 03/06/24 03/06/24 06:18 06:18 06:18 WBC RBC Hgb Hct MCV MCH MCHC RDW Plt Count MPV Immature Gran % Neutrophils % Lymphocytes % Monocytes % Eosinophils % Basophils % Nucleated RBC % Absolute Neutrophils Absolute Lymphocytes Absolute Monocytes Absolute Eosinophils Absolute Basophils Sodium Potassium Chloride 103 Carbon Dioxide Cancelled 24.4 Anion Gap Cancelled 12.6 H BUN Cancelled Creatinine Est GFR (CKD-EPI 2020) Glucose Calcium Total Bilirubin Conjugated Bilirubin AST ALT Alkaline Phosphatase Total Protein Albumin Lipase 03/06/24 03/06/24 03/06/24 06:18 06:18 06:18 WBC RBC Hgb Hct MCV MCH MCHC RDW Plt Count MPV Immature Gran % Neutrophils % Lymphocytes % Monocytes % Eosinophils % Basophils % Nucleated RBC % Absolute Neutrophils Absolute Lymphocytes Absolute Monocytes Absolute Eosinophils Absolute Basophils Sodium Potassium Chloride Carbon Dioxide Anion Gap BUN 6 L Creatinine Cancelled 0.8 Est GFR (CKD-EPI 2020) Cancelled 75.84 Glucose Cancelled Calcium Total Bilirubin Conjugated Bilirubin AST ALT Alkaline Phosphatase Total Protein Albumin Lipase 03/06/24 03/06/24 03/06/24 06:18 06:18 06:18 WBC RBC Hgb Hct MCV MCH MCHC RDW Plt Count MPV Immature Gran % Neutrophils % Lymphocytes % Monocytes % Eosinophils % Basophils % Nucleated RBC % Absolute Neutrophils Absolute Lymphocytes Absolute Monocytes Absolute Eosinophils Absolute Basophils Sodium Potassium Chloride Carbon Dioxide Anion Gap BUN Creatinine Est GFR (CKD-EPI 2020) Glucose 264 H Calcium Cancelled 9.2 Total Bilirubin Cancelled 2.65 H Conjugated Bilirubin 1.8 H AST Cancelled ALT Alkaline Phosphatase Total Protein Albumin Lipase 03/06/24 03/06/24 03/06/24 06:18 06:18 06:18 WBC RBC Hgb Hct MCV MCH MCHC RDW Plt Count MPV Immature Gran % Neutrophils % Lymphocytes % Monocytes % Eosinophils % Basophils % Nucleated RBC % Absolute Neutrophils Absolute Lymphocytes Absolute Monocytes Absolute Eosinophils Absolute Basophils Sodium Potassium Chloride Carbon Dioxide Anion Gap BUN Creatinine Est GFR (CKD-EPI 2020) Glucose Calcium Total Bilirubin Conjugated Bilirubin AST 20 ALT Cancelled 74 H Alkaline Phosphatase Cancelled 521 H Total Protein Cancelled Albumin Lipase 03/06/24 03/06/24 03/06/24 06:18 06:18 06:18 WBC RBC Hgb Hct MCV MCH MCHC RDW Plt Count MPV Immature Gran % Neutrophils % Lymphocytes % Monocytes % Eosinophils % Basophils % Nucleated RBC % Absolute Neutrophils Absolute Lymphocytes Absolute Monocytes Absolute Eosinophils Absolute Basophils Sodium Potassium Chloride Carbon Dioxide Anion Gap BUN Creatinine Est GFR (CKDEPI 2020) Glucose Calcium Total Bilirubin Conjugated Bilirubin AST ALT Alkaline Phosphatase Total Protein 5.9 L Albumin Cancelled 2.0 L Lipase Cancelled 65 03/06/24 Unknown WBC Cancelled RBC Cancelled Hgb Cancelled Hct Cancelled MCV Cancelled MCH Cancelled MCHC Cancelled RDW Cancelled Plt Count Cancelled MPV Cancelled Immature Gran % Neutrophils % Lymphocytes % Monocytes % Eosinophils % Basophils % Nucleated RBC % Absolute Neutrophils Absolute Lymphocytes Absolute Monocytes Absolute Eosinophils Absolute Basophils Sodium Potassium Chloride Carbon Dioxide Anion Gap BUN Creatinine Est GFR (CKD-EPI 2020) Glucose Calcium Total Bilirubin Conjugated Bilirubin AST ALT Alkaline Phosphatase Total Protein Albumin Lipase Time Spent with Patient Time Spent with Patient: 25-34 minutes Time was spent: preparing to see the patient(eg.review tests), obtaining and/or reviewing separately otained hiistory, ordering medications,tests, procedures, referring, communicating with other health rn intensive care unit, indepentently interpreting results, counseling the patient, care coordination and other
[2024-03-06 10:20] LABS: Magnesium 1.8 mg/dL (1.8-2.4)
[2024-03-06] MEDS: Lisinopril 10 MG TAB 5 MG PO (10:23)
[2024-03-06 10:57] VITALS: BP 110/46; PULSE 74; RESP 16; TEMP 37.1; O2SAT 97
[2024-03-06] MEDS: POTASSIUM CHLORIDE 10 MEQ/100 ML BAG 100 MEQ IVINF ×3 (11:48→14:40)
--- NOTE | 2024-03-06 13:16 | PHA.REVIEW2 ---
Pharmacy Admission Review Admission Clinical Review Admission Pharmacy Review: Hypokalemia due to loss of potassium (Acute) Cholelithiasis with acute on chronic cholecystitis with biliary obstruction (Acute) Hypothyroidism (acquired) (Acute) Elevated lipase (Acute) Jaundice (Acute) Diabetes mellitus with ketosis (Acute) Choledocholithiasis (Acute) No Known Allergies Allergy (Unverified 03/04/24 13:17) Resuscitation Status Full Code Height 5 ft 4 in Weight 68.6 kg Pharmacy Admission Review Renal Dosing Renal Dosing: BUN 6 mg/dL (7-18) L 03/06/24 06:18 BUN Cancelled 03/06/24 06:18 Creatinine 0.8 mg/dL (0.55-1.02) 03/06/24 06:18 Creatinine Cancelled 03/06/24 06:18 Medications needing adjustments: Reviewed (CrCl 44.81 mL/min) List of meds needing interventions: Current medications are okay Anticoagulation Anticoagulation: Hgb Cancelled 03/06/24 Unknown Hct Cancelled 03/06/24 Unknown Plt Count Cancelled 03/06/24 Unknown INR 1.0 (0.9-1.1) 03/05/24 05:42 Creatinine 0.8 mg/dL (0.55-1.02) 03/06/24 06:18 Creatinine Cancelled 03/06/24 06:18 DVT Prophylaxis: Reviewed Medications: Enoxaparin (40mg daily - on hold pending procedure tomorrow) Opiate Usage Evaluate Pain Scale/Pains Meds: Reviewed (PRN morphine - no doses given so far) Scheduled Bowel Reg ordered if on Opiates?: No Relevant Labs Relevant Labs: Sodium 140 mmol/L (136-145) 03/06/24 06:18 Sodium Cancelled 03/06/24 06:18 Potassium 2.7 mmol/L (3.5-5.1) L* 03/06/24 06:18 Potassium Cancelled 03/06/24 06:18 Chloride 103 mmol/L (98-107) 03/06/24 06:18 Chloride Cancelled 03/06/24 06:18 Magnesium 1.8 mg/dL (1.8-2.4) 03/06/24 06:18 Electrolytes, C-Reactive P, ESR: Reviewed (K 2.7 - repleting with IV infusion, total bilirubin decreased from 3.74 to 2.65 and AST/ALT decreased from 34/91 to 20/74) DM Control DM Control: Glucose 264 mg/dL (74-106) H 03/06/24 06:18 Glucose Cancelled 03/06/24 06:18 Finger Stick Blood Glucose 209 1230 Finger Stick Blood Glucose 209 1201 Finger Stick Blood Glucose 209 1201 Finger Stick Blood Glucose 262 0531 Finger Stick Blood Glucose 262 0530 Finger Stick Blood Glucose 262 0530 DM Control: Reviewed Insulin Dosing, Diabetic Medication: Has order for SS insulin Cardiac Review Cardiac Review: Troponin I Cancelled 03/04/24 16:35 BP, HR, EF%: Reviewed (BP 110/46 and HR WNL) List meds needing interventions: Has order for lisinopril 5mg daily QTc Review QTc: Reviewed (418 from 03/04) IV to PO Switch IV Medications: Reviewed (Zosyn, ondansetron, morphine and ondansetron - procedure tomorrow) Home Meds Home Med List reviewed: Reviewed Relevent Home Meds Not ordered & why?: aspirin, vitamin B12, glargine (has order for SS insulin) and lovastatin Will reach out to provider after procedure tomorrow regarding missing home meds Current Meds Current Medication Order Review: Reviewed Pharmacy Antibiotic Review Relevant Labs: WBC 6.80 03/06/24 0618 Temperature 37.1 C Temperature 36.2 C Microbiology 03/04/24 13:42 Urine Culture - Final Urine - Reflex from Ua Gram Positive Vane,Mixed Gram Negative Lionel 03/04/24 18:30 Blood Culture - Preliminary Blood NO GROWTH 24 HOURS 03/04/24 14:44 Blood Culture - Preliminary Blood NO GROWTH 24 HOURS Comments: Patient is on Zosyn, day 2, for choledocholithiasis.
[2024-03-06 15:09] VITALS: BP 133/56; PULSE 71; RESP 16; TEMP 36.9; O2SAT 96
--- NOTE | 2024-03-06 16:28 | CHAPLAIN ---
I had a brief visit with Christine. Shew as resting in bed. When I introduced myself, she said Im all set tool room machinist-sapp. I offered support and let her know tool room machinist support is available 10/01.
[2024-03-06 19:48] VITALS: BP 118/60; PULSE 70; RESP 16; TEMP 36.8; O2SAT 96
[2024-03-07] VITALS (34 sets, daily range): BP systolic 115–158; BP diastolic 34–68; PULSE 71–94; RESP 11–18; TEMP 36–37.5; O2SAT 97–100; BMI 25.9
[2024-03-07] MEDS: Levothyroxine 50 MCG TAB PO (06:11)
[2024-03-07] MEDS: PIPERACILLIN/TAZO 3.375 GM in Normal Saline 50 ML IVPB (06:11)
[2024-03-07] MEDS: Insulin Aspart 300 UNITS/3 ML PEN SC ×3 (06:15→16:47)
--- NOTE | 2024-03-07 06:52 | ANES.PREOP_ITS ---
General Info Date of Service Date Performed: 03/07/24 Height: 5 ft 4 in Weight: 68.6 kg Body Mass Index (BMI): 25.9 Surgical Procedure: Operation Date: 03/07/24 07:40 Proposed Procedure Side Surgeon p Cholecystectomy Laparoscopic Rory Pena MD Meds Allergies and Home Medications Allergies Allergy/AdvReac Type Severity Reaction Status Date / Time No Known Allergies Allergy Unverified 03/04/24 13:17 Home Medication ?Medication ?Instructions ?Recorded aspirin 81 mg tablet,delayed 81 mg PO DAILY 03/04/24 release cyanocobalamin (vitamin B-12) 1,000 mcg PO DAILY 03/04/24 1,000 mcg tablet insulin aspart U-100 100 unit/mL See Rx Instructions subcut .COMPLEX 03/04/24 subcutaneous cartridge insulin glargine 100 unit/mL (3 9 unit subcut BID 03/04/24 mL) subcutaneous pen (Lantus Solostar U-100 Insulin) levothyroxine 50 mcg tablet 50 mcg PO DAILY 03/04/24 lisinopril 10 mg tablet 5 mg PO DAILY 03/04/24 lovastatin 40 mg tablet 40 mg PO DAILY 03/04/24 Current Visit Medications: Current Medications Generic Name Dose Route Start Last Admin Trade Name Freq PRN Reason Stop Dose Admin Dextrose 0 gm 03/04/24 19:52 Glucose Oral Gel 15 Gm/37.5 Gm Tube PO DIRECTED PRN Dextrose/Water 0 gm 03/04/24 19:52 Dextrose 50%-Water 25 Gm/50 Ml Syr IVP DIRECTED PRN Enoxaparin Sodium 40 mg 03/04/24 18:00 03/05/24 18:33 Enoxaparin 40 Mg/0.4 Ml Syr SC Not Given Q24H ANA Acetaminophen 1,000 mg in 100 mls @ 400 mls/hr 03/04/24 17:22 Ofirmev IVPB Q8H PRN PRN Famotidine 20 mg in 50 mls @ 200 mls/hr 03/05/24 18:00 03/06/24 19:50 Pepcid Premixed Bag IV Infused Q12H ANA Infusion Sodium Chloride 1,000 mls @ 80 mls/hr 03/06/24 15:15 Saline 1000ml Bag IV INFUSION ANA Piperacillin Sod/Tazobactam 50 mls @ 100 mls/hr 03/07/24 00:00 03/07/24 06:11 Sod 3.375 gm/ Sodium Chloride IVPB 100 mls/hr Q6H ANA Administration IV Miscellaneous Supplies 1 each 03/04/24 17:30 Iv Access IV DIRECTED ANA Indocyanine Green 5 mg 03/07/24 07:00 Indocyanine Green 25 Mg Vial IVP DIRECTED ANA Insulin Aspart 0 units 03/05/24 00:00 03/07/24 06:15 Insulin Aspart 300 Units/3 Ml Pen SC 9 units Q6H ANA Administration Protocol Levothyroxine Sodium 50 mcg 03/05/24 06:00 03/07/24 06:11 Levothyroxine 50 Mcg Tab PO 50 mcg 0600 ANA Administration Lisinopril 5 mg 03/05/24 08:30 03/06/24 10:23 Lisinopril 10 Mg Tab PO 5 mg DAILY ANA Administration Morphine Sulfate 2 mg 03/04/24 17:22 Morphine 2 Mg/Ml Syr IVP Q4H PRN PRN Ondansetron HCl 4 mg 03/04/24 17:22 Ondansetron 4 Mg/2 Ml Vial IVP Q4H PRN PRN Sodium Chloride 0 ml 03/04/24 13:35 03/06/24 04:25 Normal Saline Flush 10 Ml Syr IVP 10 ml PRN PRN Administration Sodium Chloride 0 ml 03/04/24 20:00 03/06/24 19:50 Normal Saline Flush 10 Ml Syr IVP 10 ml BID ANA Administration Sodium Chloride 0 ml 03/04/24 17:22 Normal Saline 10 Ml Vial IJ DIRECTED PRN PFSH Active Problems Active Problems: Problem Status Onset Code Hypokalemia due to loss of potassium Acute E87.6 Cholelithiasis with acute on chronic cholecystitis with biliary obstruction Acute K80.13 Elevated cholesterol Chronic E78.00 Hypothyroidism (acquired) Acute E03.9 HTN (hypertension) Chronic I10 Elevated lipase Acute R74.8 Jaundice Acute R17 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 Choledocholithiasis Acute K80.50 Surgical History Surgical History (Updated 03/06/24 @ 11:01 by Jennifer Posadas DO) S/P ERCP Tobacco Smoking/Tobacco Use Status: Former Tobacco Use Alcohol Alcohol Intake: never Substance Use Substance use: Never Vital Signs and Lab Results Vital Signs Most Recent Vital Signs in EMR: Most Recent Vital Signs Temp Pulse Resp BP Pulse Ox 36.8 C 70 16 118/60 96 03/06/24 19:48 03/06/24 19:48 03/06/24 19:48 03/06/24 19:48 03/06/24 19:48 Point of Care Results Point of Care Results: Finger Stick Blood Glucose 223 03/07/24 06:15 Lab Results 03/06/24 06:18 03/06/24 06:18 Blood Type / Crossmatch: 2 No Data to Display Complete Blood Count: 2 White Blood Count 6.80 10^3/uL (4.4-10.8) 03/06/24 06:18 Red Blood Count 3.96 10^6/uL (3.93-5.22) 03/06/24 06:18 Hemoglobin 12.1 g/dL (11.2-15.7) 03/06/24 06:18 Hematocrit 36.5 % (36.0-46.0) 03/06/24 06:18 Platelet Count 322 10^3/uL (130-400) 03/06/24 06:18 Complete Metabolic Panel: 2 Sodium 140 mmol/L (136-145) 03/06/24 06:18 Potassium 2.7 mmol/L (3.5-5.1) L* 03/06/24 06:18 Chloride 103 mmol/L (98-107) 03/06/24 06:18 Carbon Dioxide 24.4 mmol/L (21.0-32.0) 03/06/24 06:18 BUN 6 mg/dL (7-18) L 03/06/24 06:18 Creatinine 0.8 mg/dL (0.55-1.02) 03/06/24 06:18 Est GFR (CKD-EPI 2020) 75.84 (mL/min/1.73m2) 03/06/24 06:18 Magnesium 1.8 mg/dL (1.8-2.4) 03/06/24 06:18 Calcium 9.2 mg/dL (8.5-10.1) 03/06/24 06:18 Albumin 2.0 g/dL (3.4-5.0) L 03/06/24 06:18 Glucose 264 mg/dL (74-106) H 03/06/24 06:18 Liver Function Panel: 2 Alanine Aminotransferase (ALT/SGPT) 74 U/L (14-59) H 03/06/24 0 6:18 Aspartate Amino Transf (AST/SGOT) 20 U/L (15-37) 03/06/24 06:18 Coagulation Panel: 2 INR International Normalized Ratio 1.0 (0.9-1.1) 03/05/24 05:4 2 Prothrombin Time 9.6 sec (9.1-11.1) 03/05/24 05:42 Activated Partial Thromboplast Time 28.1 sec (23.6-32.8) 05:42 Cardiac Panel: 2 Troponin I 13 ng/L (<or=51) 03/04/24 Arterial Blood Gas: 2 No Data to Display Venous Blood Gas: 2 Venous Blood pH 7.41 (7.31-7.41) 03/04/24 13:52 Venous Blood Partial Pressure O2 44 mmHg 03/04/24 13:52 Venous Blood Partial Pressure CO2 37 mmHg (41-51) L 03/04/24 13 :52 Venous Blood Oxygen Saturation 80 % 03/04/24 13:52 Venous Blood HCO3 24 mmol/L (23-28) 03/04/24 13:52 Venous Blood Base Excess -1 mmol/L (-2-3) 03/04/24 13:52 Venous Blood Total Carbon Dioxide 21 mmol/L (24-29) L 03/04/24 13:52 Pancreas Panel: 2 Lipase 65 U/L (16-77) 03/06/24 06:18 Thyroid Panel: 2 Thyroid Stimulating Hormone (TSH) 1.61 uIU/mL (0.36-3.74) 03/05 05:42 Infectious Disease: 2 No Data to Display Blood Cultures: 2 No Data to Display Toxicology Panel: 2 No Data to Display Imaging and Studies Imaging and Studies Study information below may be from another EMR and interpreted by another provider. Please see original notes in EMR for more complete details. EKG Summary: 03/04/24: Exam: Resting ECG Reason for Exam: Tachy, electrolyte derangements Patient Location: E HR:84 bpm ECG Measurements Heart Rate 84 AXIS KS 126 P -38 QRSd 84 QRS 39 QT 353 T19 QTc 418 Conclusion Sinus rhythm, rate 84 biphasic/inverted P waves inferior leads No STEMI I have reviewed and I agree with the emergency room physician's ECG interpretation. Anesthesia Assessment and Plan Anesthesia History Personal History: No History of Anesthesia Complications Family History: No Family History of Anesthesia Complications Exercise Tolerance Exercise Tolerance: Metabolic Equivalents>4 Cardiac & Pulmonary Exam Cardiac Exam: Normal S1/S2 Heart Sounds Pulmonary Exam: Clear Bilateral Breath Sounds Implantable Cardiac Device Does patient have a Pacemaker or an ICD?: No Airway Exam Known Difficult Airway: No ASA Classification ASA Score: ASA 3 Emergency Case?: No NPO Status NPO Status: NPO Clears >2 hours, Solids >8 hours Anesthesia Plan Resuscitation Status: Full Code Anesthesia Technique: General Anesthesia Airway Planned: Endotracheal Tube Monitors Used: Standard Monitors and SedLine
[2024-03-07 07:16] LABS: Abs Immature Grans 0.07 10^3/uL (0.0-0.06); Absolute Basophil Count 0.06 10^3/uL (0.0-0.2); Absolute Eosinophil Count 0.39 10^3/uL (0.0-0.7); Absolute Lymphocyte Count 1.65 10^3/uL (1.2-3.4); Absolute Neutrophil Count 4.44 10^3/uL (1.2-6.7); Basophils % 0.9 %; Eosinophils % 5.6 %; HCT 37.7 % (36.0-46.0); HGB 12.5 g/dL (11.2-15.7); Lymphocytes % 23.5 %; MCH 30.1 pg (27.0-33.0); MCHC 33.2 % (32.0-36.0); MCV 91 fL (80-95); MPV 9.9 fL (8.0-11.0); Monocytes % 5.7 %; Neutrophils % 63.3 %; Platelet Count 352 10^3/uL (130-400); RBC 4.15 10^6/uL (3.93-5.22); RDW 13.7 % (11.7-14.6); RDW-SD 46.2 fL; WBC 7.01 10^3/uL (4.4-10.8)
[2024-03-07] MEDS: FAMOTIDINE 20 MG/50 ML BAG 200 MG IV (07:16)
[2024-03-07 07:43] LABS: Magnesium 1.7 mg/dL (1.8-2.4)
[2024-03-07 07:46] LABS: ALT 55 U/L (14-59); AST 18 U/L (15-37); Albumin 1.9 g/dL (3.4-5.0); Alkaline Phosphatase 444 U/L (46-116); BUN 8 mg/dL (7-18); Bilirubin, Total 1.99 mg/dL (0.2-1.0); CREATININE 0.7 mg/dL (0.55-1.02); Chloride 105 mmol/L (98-107); Estimated GFR 89.02 (mL/min/1.73m2); Glucose 281 mg/dL (74-106); Lipase 79 U/L (16-77); Potassium 3.3 mmol/L (3.5-5.1); Sodium 140 mmol/L (136-145); Total Protein 5.7 g/dL (6.4-8.2)
--- NOTE | 2024-03-07 07:47 | ANES.PREOP_ITS ---
General Info Date of Service Date Performed: 03/07/24 Height: 5 ft 4 in Weight: 68.6 kg Body Mass Index (BMI): 25.9 Surgical Procedure: Operation Date: 03/07/24 07:40 Proposed Procedure Side Surgeon p Cholecystectomy Laparoscopic Rory Pena MD Meds Allergies and Home Medications Allergies Allergy/AdvReac Type Severity Reaction Status Date / Time No Known Allergies Allergy Unverified 03/04/24 13:17 Home Medication ?Medication ?Instructions ?Recorded aspirin 81 mg tablet,delayed 81 mg PO DAILY 03/04/24 release cyanocobalamin (vitamin B-12) 1,000 mcg PO DAILY 03/04/24 1,000 mcg tablet insulin aspart U-100 100 unit/mL See Rx Instructions subcut .COMPLEX 03/04/24 subcutaneous cartridge insulin glargine 100 unit/mL (3 9 unit subcut BID 03/04/24 mL) subcutaneous pen (Lantus Solostar U-100 Insulin) levothyroxine 50 mcg tablet 50 mcg PO DAILY 03/04/24 lisinopril 10 mg tablet 5 mg PO DAILY 03/04/24 lovastatin 40 mg tablet 40 mg PO DAILY 03/04/24 Current Visit Medications: Current Medications Generic Name Dose Route Start Last Admin Trade Name Freq PRN Reason Stop Dose Admin Dextrose 0 gm 03/04/24 19:52 Glucose Oral Gel 15 Gm/37.5 Gm Tube PO DIRECTED PRN Dextrose/Water 0 gm 03/04/24 19:52 Dextrose 50%-Water 25 Gm/50 Ml Syr IVP DIRECTED PRN Enoxaparin Sodium 40 mg 03/04/24 18:00 03/05/24 18:33 Enoxaparin 40 Mg/0.4 Ml Syr SC Not Given Q24H ANA Acetaminophen 1,000 mg in 100 mls @ 400 mls/hr 03/04/24 17:22 Ofirmev IVPB Q8H PRN PRN Famotidine 20 mg in 50 mls @ 200 mls/hr 03/05/24 18:00 03/07/24 07:16 Pepcid Premixed Bag IV 200 mls/hr Q12H ANA Administration Sodium Chloride 1,000 mls @ 80 mls/hr 03/06/24 15:15 Saline 1000ml Bag IV INFUSION ANA Piperacillin Sod/Tazobactam 50 mls @ 100 mls/hr 03/07/24 00:00 03/07/24 06:59 Sod 3.375 gm/ Sodium Chloride IVPB Infused Q6H ANA Infusion IV Miscellaneous Supplies 1 each 03/04/24 17:30 Iv Access IV DIRECTED ANA Indocyanine Green 5 mg 03/07/24 07:00 Indocyanine Green 25 Mg Vial IVP DIRECTED ANA Insulin Aspart 0 units 03/05/24 00:00 03/07/24 06:15 Insulin Aspart 300 Units/3 Ml Pen SC 9 units Q6H ANA Administration Protocol Levothyroxine Sodium 50 mcg 03/05/24 06:00 03/07/24 06:11 Levothyroxine 50 Mcg Tab PO 50 mcg 0600 ANA Administration Lisinopril 5 mg 03/05/24 08:30 03/06/24 10:23 Lisinopril 10 Mg Tab PO 5 mg DAILY ANA Administration Morphine Sulfate 2 mg 03/04/24 17:22 Morphine 2 Mg/Ml Syr IVP Q4H PRN PRN Ondansetron HCl 4 mg 03/04/24 17:22 Ondansetron 4 Mg/2 Ml Vial IVP Q4H PRN PRN Sodium Chloride 0 ml 03/04/24 13:35 03/06/24 04:25 Normal Saline Flush 10 Ml Syr IVP 10 ml PRN PRN Administration Sodium Chloride 0 ml 03/04/24 20:00 03/06/24 19:50 Normal Saline Flush 10 Ml Syr IVP 10 ml BID ANA Administration Sodium Chloride 0 ml 03/04/24 17:22 Normal Saline 10 Ml Vial IJ DIRECTED PRN PFSH Active Problems Active Problems: Problem Status Onset Code Hypokalemia due to loss of potassium Acute E87.6 Cholelithiasis with acute on chronic cholecystitis with biliary obstruction Acute K80.13 Elevated cholesterol Chronic E78.00 Hypothyroidism (acquired) Acute E03.9 HTN (hypertension) Chronic I10 Elevated lipase Acute R74.8 Jaundice Acute R17 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 Choledocholithiasis Acute K80.50 Surgical History Surgical History (Updated 03/06/24 @ 11:01 by Jennifer Posadas DO) S/P ERCP Tobacco Smoking/Tobacco Use Status: Former Tobacco Use Alcohol Alcohol Intake: never Substance Use Substance use: Never Vital Signs and Lab Results Vital Signs Most Recent Vital Signs in EMR: Most Recent Vital Signs Temp Pulse Resp BP Pulse Ox 36.8 C 70 16 118/60 96 03/06/24 19:48 03/06/24 19:48 03/06/24 19:48 03/06/24 19:48 03/06/24 19:48 Point of Care Results Point of Care Results: Finger Stick Blood Glucose 223 03/07/24 06:15 Lab Results 03/07/24 06:49 03/07/24 06:49 Blood Type / Crossmatch: 2 No Data to Display Complete Blood Count: 2 White Blood Count 7.01 10^3/uL (4.4-10.8) 03/07/24 06:49 Red Blood Count 4.15 10^6/uL (3.93-5.22) 03/07/24 06:49 Hemoglobin 12.5 g/dL (11.2-15.7) 03/07/24 06:49 Hematocrit 37.7 % (36.0-46.0) 03/07/24 06:49 Platelet Count 352 10^3/uL (130-400) 03/07/24 06:49 Complete Metabolic Panel: 2 Sodium 140 mmol/L (136-145) 03/07/24 06:49 Potassium 3.3 mmol/L (3.5-5.1) L 03/07/24 06:49 Chloride 105 mmol/L (98-107) 03/07/24 06:49 Carbon Dioxide 22.0 mmol/L (21.0-32.0) 03/07/24 06:49 BUN 8 mg/dL (7-18) 03/07/24 06:49 Creatinine 0.7 mg/dL (0.55-1.02) 03/07/24 06:49 Est GFR (CKD-EPI 2020) 89.02 (mL/min/1.73m2) 03/07/24 06:49 Magnesium 1.7 mg/dL (1.8-2.4) L 03/07/24 06:49 Calcium 9.0 mg/dL (8.5-10.1) 03/07/24 06:49 Albumin 1.9 g/dL (3.4-5.0) L 03/07/24 06:49 Glucose 281 mg/dL (74-106) H 03/07/24 06:49 Liver Function Panel: 2 Alanine Aminotransferase (ALT/SGPT) 55 U/L (14-59) 03/07/24 06: 49 Aspartate Amino Transf (AST/SGOT) 18 U/L (15-37) 03/07/24 06:49 Coagulation Panel: 2 INR International Normalized Ratio 1.0 (0.9-1.1) 03/05/24 05:4 2 Prothrombin Time 9.6 sec (9.1-11.1) 03/05/24 05:42 Activated Partial Thromboplast Time 28.1 sec (23.6-32.8) 05:42 Cardiac Panel: 2 Troponin I 13 ng/L (<or=51) 03/04/24 Arterial Blood Gas: 2 No Data to Display Venous Blood Gas: 2 Venous Blood pH 7.41 (7.31-7.41) 03/04/24 13:52 Venous Blood Partial Pressure O2 44 mmHg 03/04/24 13:52 Venous Blood Partial Pressure CO2 37 mmHg (41-51) L 03/04/24 13 :52 Venous Blood Oxygen Saturation 80 % 03/04/24 13:52 Venous Blood HCO3 24 mmol/L (23-28) 03/04/24 13:52 Venous Blood Base Excess -1 mmol/L (-2-3) 03/04/24 13:52 Venous Blood Total Carbon Dioxide 21 mmol/L (24-29) L 03/04/24 13:52 Pancreas Panel: 2 Lipase 79 U/L (16-77) H 03/07/24 06:49 Thyroid Panel: 2 Thyroid Stimulating Hormone (TSH) 1.61 uIU/mL (0.36-3.74) 03/05 05:42 Infectious Disease: 2 No Data to Display Blood Cultures: 2 No Data to Display Toxicology Panel: 2 No Data to Display Imaging and Studies Imaging and Studies Study information below may be from another EMR and interpreted by another provider. Please see original notes in EMR for more complete details. EKG Summary: 03/04/24: EKG PATIENT NAME: Christine North UNIT #: [id number] ORDERING PROVIDER: Addis Londono M.D. PRIMARY CARE PROVIDER: HOLDEN LANGE NP DATE/TIME OF SERVICE: 03/04/24 141 : 1945 PERFORMING LOCATION: [place] APPROVED REPORT Exam: Resting ECG Reason for Exam: Tachy, electrolyte derangements Patient Location: E HR:84 bpm ECG Measurements Heart Rate 84 AXIS LA 126 P -38 QRSd 84 QRS 39 QT 353 T19 QTc 418 Conclusion Sinus rhythm, rate 84 biphasic/inverted P waves inferior leads No STEMI - <Electronically signed by Addis Londono M.D. in [place]> E-Sign Date: 03/04/24 E-Sign Time: 1543 ADDENDUM APPROVED REPORT Exam: Resting ECG Reason for Exam: Tachy, electrolyte derangements Patient Location: E HR:84 bpm ECG Measurements Heart Rate 84 AXIS LA 126 P -38 QRSd 84 QRS 39 QT 353 T19 QTc 418 Conclusion Sinus rhythm, rate 84 biphasic/inverted P waves inferior leads No STEMI I have reviewed and I agree with the emergency room physician's ECG interpretation. Anesthesia Assessment and Plan Anesthesia History Personal History: No History of Anesthesia Complications Family History: No Family History of Anesthesia Complications Exercise Tolerance Exercise Tolerance: Metabolic Equivalents>4 Pertinent Negatives Pertinent Negatives: No Symptoms of GERD, No Major Cardiovascular Symptoms or Complaints and No Major Pulmonary Symptoms or Complaints Cardiac & Pulmonary Exam Cardiac Exam: Normal S1/S2 Heart Sounds Pulmonary Exam: Clear Bilateral Breath Sounds Implantable Cardiac Device Does patient have a Pacemaker or an ICD?: No Airway Exam Known Difficult Airway: No Mallampati Class: 1 Mouth Opening: Normal (> 3cm) Thyromental Distance: Greater than 3 cm Neck Range of Motion: Full ROM Neck Circumference: Normal Teeth Condition: Normal Dentition ASA Classification ASA Score: ASA 3 Emergency Case?: No NPO Status NPO Status: NPO Clears >2 hours, Solids >8 hours Anesthesia Plan Resuscitation Status: Full Code Anesthesia Technique: General Anesthesia Airway Planned: Endotracheal Tube Monitors Used: Standard Monitors and SedLine [place] Comments[place] [facility] [place] patient tolerated anesthesia for ERCP well.
[2024-03-07] MEDS: Normal Saline Flush 10 ML SYR IVP ×2 (08:00→21:00)
[2024-03-07] MEDS: Indocyanine green 25 MG VIAL 5 MG IVP (08:00)
[2024-03-07] MEDS: Lactated Ringers 1,000 ML 30 ML IV (08:00)
[2024-03-07] MEDS: Bupivacaine 0.25% Pres-Free 30 ML VIAL (08:40)
--- NOTE | 2024-03-07 10:45 | W.PM.OP ---
Date of service: 03/07/24 Time of Service: 10:45 Operative Note Operative Note DATE OF PROCEDURE: 03/07/24 PRE-OP DIAGNOSIS: Cholelithiasis causing choledocholithiasis POST-OP DIAGNOSIS: other (Chronic cholecystitis) PROCEDURE: Laparoscopic cholecystectomy SURGEON: Rory Pena WEATHERIZATION DIRECTOR: Shobha Garay ANESTHESIA TYPE: General:No Airway Refer to Anesthesia Record ESTIMATED BLOOD LOSS: 100 PATHOLOGY: other (Gallbladder) COMPLICATIONS: None Patient was transported to: PACU Patient's condition: stable Indications: Hilaria is a 78-year-old woman who recently suffered from choledocholithiasis. She underwent ERCP to clear the duct with metal stenting. She has known cholelithiasis, and I recommended cholecystectomy for definitive treatment to reduce likelihood of recurrent choledocholithiasis or complications of Findings: Chronic cholecystitis Procedure Description: After satisfactory induction of general anesthesia, I prepped and draped the abdomen in usual fashion. Next, I began with a periumbilical incision. I dissected down to the fascia and elevated it with Renetta clamps. I incised it sharply. Next, I passed a 12 mm operating port in the umbilical site. I secured it to the fascia with 0 Vicryl stitches. I then insufflated the peritoneal cavity. Next I inserted a 5 mm 30 degree scope and examined the underlying viscera. There was no evidence of injury created upon entry. I then placed the patient in some reverse Trendelenburg and left side down positioning. Then, with the assistance of the laparoscope, I used local anesthetic to anesthetize the midepigastric and 2 right upper quadrant port sites. Under the vision of the laparoscope, I passed 3 more 5 mm ports. There were thick adhesions of the greater omentum all over the gallbladder. I dissected out the dome of the gallbladder. This was then retracted cephalad. Tedious dissection was used to clear out the lateral margin of the gallbladder from thick adhesions to the omentum. The omentum was pulled downward, and the dome was continually retracted towards the patient's head. I began by dissecting the gallbladder infundibulum. I worked in a lateral to medial fashion. The gallbladder neck and cystic duct were caked in thick adhesions. I was worried that dissection of the individual cystic structures would pose significant risk for cystic duct injury and cystic artery bleeding. Therefore, staying quite high on the gallbladder, I dissected the posterior wall off of the gallbladder fossa. I then exchanged the 5 mm port in the mid epigastrium for 12 mm port. next, with a Endo DELISA stapler I divided the cystic duct and artery en radha. There was no bleeding. I then used electrocautery to dissect the gallbladder off the gallbladder fossa. I passed the gallbladder into an Endo Catch bag and removed it by way of the umbilical site. I examined the surgical field. It was hemostatic. I then removed the 5 mm ports under the vision of the laparoscope. Finally, I removed the umbilical port site and closed the fascia with Vicryl stitches. Sites were irrigated, and the skin was closed with subcuticular stitches. Bandages were applied, patient was awakened from anesthesia, and transferred to the recovery unit.
[2024-03-07] MEDS: ACETAMINOPHEN 1,000 MG/100 ML BTL 400 MG IVPB (11:12)
--- NOTE | 2024-03-07 13:10 | W.ANESPOSTOP ---
Postoperative Evaluation Date, Time and Location Date Performed: 03/07/24 Time Performed: 13:05 Patient Location: Med/Surg Vital Signs Most Recent Imported Vital Signs: Most Recent Vital Signs Temp Pulse Resp BP Pulse Ox 36.2 C L 87 15 136/51 L 97 03/07/24 12:50 03/07/24 12:50 03/07/24 12:50 03/07/24 12:50 03/07/24 12:18 Pain Score Most Recent Pain Score: Most Recent Pain Score Pain Level 0 03/07/24 12:00 Assessment Mental Status: Arousable with meaningful communication Airway and Respiratory Function: Patent airway with normal (patient baseline) respiratory exam Cardiovascular Function: Hemodynamically Stable Hydration Status: Adequately Hydrated Nausea & Vomiting: No Nausea or Vomiting Pain: Pain is tolerable per patient Peripheral Nerve Block: Patient did not receive a nerve block
--- NOTE | 2024-03-07 15:24 | PGE_ITS ---
Date of Service Date of service: 03/07/24 Time of Service: 15:24 Assessment and Plan Assessment and plan (1) Cholelithiasis with acute on chronic cholecystitis with biliary obstruction: Status: Acute Assessment and plan: I think Christine is making a nice recovery from choledocholithiasis. Will advance her diet a little bit this afternoon, and as long as she tolerates that, and her pain remains controlled. Will discharge her home, with outpatient follow-up. Subjective Subjective Interval history since last seen: Christine looks very good after laparoscopic cholecystectomy earlier today. She is little bit tired, but seems to be waking up a bit more. Pain seems well-con trolled Exam GI Other: Abdomen is soft and nondistended, bandages are clean and dry. Objective Last Vital Signs Temp 97.2 F L 03/07/24 14:41 Pulse 92 H 03/07/24 14:41 Resp 15 03/07/24 14:41 BP 137/52 L 03/07/24 14:41 Pulse Ox 98 03/07/24 14:41 Laboratory Results - last 24 hr 03/07/24 06:49 WBC 7.01 RBC 4.15 Hgb 12.5 Hct 37.7 MCV 91 MCH 30.1 MCHC 33.2 RDW 13.7 Plt Count 352 MPV 9.9 Immature Gran % 1.0 Neutrophils % 63.3 Lymphocytes % 23.5 Monocytes % 5.7 Eosinophils % 5.6 Basophils % 0.9 Nucleated RBC % 0.0 Absolute Neutrophils 4.44 Absolute Lymphocytes 1.65 Absolute Monocytes 0.40 Absolute Eosinophils 0.39 Absolute Basophils 0.06 Sodium 140 Potassium 3.3 L Chloride 105 Carbon Dioxide 22.0 Anion Gap 13.0 H BUN 8 Creatinine 0.7 Est GFR (CKD-EPI 2020) 89.02 Glucose 281 H Calcium 9.0 Magnesium 1.7 L Total Bilirubin 1.99 H AST 18 ALT 55 Alkaline Phosphatase 444 H Total Protein 5.7 L Albumin 1.9 L Lipase 79 H Time Spent with Patient Time Spent with Patient: <25 minutes Time was spent: preparing to see the patient(eg.review tests), indepentently interpreting results and counseling the patient
--- NOTE | 2024-03-07 16:49 | PDOC.CMPRO ---
Date of service: 03/07/24 Time of Service: 16:49 Care Management Progress Note Progress Note Text Progress Note Text: Christine was brought ot the OR today, for laparoscopic cholecystectomy and remains drowsy. Anticipate diet advancements, and if pain remains well controlled-she will discharge home with no additional services. CM following. Discharge Anticipated Barriers to Discharge: None Identified Patient/Family Education Needs: Review discharge instructions, discuss Ask Me Three Transportation: Private vehicle Plan: Home no services, outpatient follow up, private vehicle transport with family, CM following. SDOH(Care Management) Screening Will the Patient Participate in the Screening?: Yes Do you worry about having a steady place to live?: no In the past 12 months, have you had to go without electric, gas, oil or water in your home?: no Have you or anyone in your house had to go without enough food to eat?: no Has lack of transportation kept you from medical appointments or from doing things needed for daily living?: no Has anyone in your support network made you feel unsafe for any reason?: no
[2024-03-07] MEDS: Enoxaparin 40 MG/0.4 ML SYR SC (17:47)
[2024-03-07] MEDS: Insulin Glargine 300 UNITS/3 ML PEN SC (20:58)
[2024-03-08] MEDS: Insulin Aspart 300 UNITS/3 ML PEN SC ×3 (00:27→11:33)
[2024-03-08] MEDS: Levothyroxine 50 MCG TAB PO (05:55)
[2024-03-08 07:47] VITALS: BP 136/59; PULSE 85; RESP 17; TEMP 36.9; O2SAT 93
[2024-03-08] MEDS: Lisinopril 10 MG TAB 5 MG PO (08:24)
[2024-03-08] MEDS: Insulin Glargine 300 UNITS/3 ML PEN SC (08:24)
[2024-03-08 11:07] VITALS: BP 131/57; PULSE 75; RESP 15; TEMP 36.5; O2SAT 95
[2024-03-08 11:22] VITALS: BP 105/59; PULSE 63; RESP 15; TEMP 37.1; O2SAT 93
--- NOTE | 2024-03-08 12:22 | W.PM.DS.N ---
Date of service: 03/08/24 Time of Service: 12:22 DS: Diagnosis Discharge Diagnosis (1) Cholelithiasis with acute on chronic cholecystitis with biliary obstruction: Status: Acute Discharge Plan Disposition Patient Disposition: Home Condition: Good Discharge Details Reason For Visit: choledocholithiasis,acute cholecystitis Admit Date/Time: 03/04/24 17:22 Admit Provider: Brit Olguin Attending Provider: Brit Olguin Primary Care Provider: Lisa Sullivan Hospital Course Hospital Course: Patient is a 78-year-old woman who presented to the emergency room with abdominal pain. She was found to have choledocholithiasis. She was admitted to the hospital. See admission H&P for details. She was subsequently transferred down to [facility] for an ERCP. Common bile duct stones were removed, sphincterotomy was performed, stent was placed. Reportedly she has follow-up in 6 weeks already scheduled. She then underwent laparoscopic cholecystectomy here with Dr. Pena yesterday. She is now postop day 1. She has tolerated some solid food this morning. She is ambulating independently to the bathroom. Pain is tolerable. She is urinating. She has not had a bowel movement today. She was felt stable for discharge home with her family. Home Meds and New Rx's Prescriptions: No Action insulin aspart U-100 100 unit/mL cartridge See Rx Instructions SUBCUT .COMPLEX Rx Instructions: sliding scale subcutaneously; insulin glargine [Lantus Solostar U-100 Insulin] 100 unit/mL (3 mL) insulin pen 9 unit SUBCUT BID Patient Comments: INJECT 8 UNITS UNDER THE SKIN EVERY MORNING AND 7 UNITS EVERY EVENING levothyroxine 50 mcg tablet 50 mcg PO DAILY Patient Comments: TAKE 1 TABLET BY MOUTH EVERY DAY lisinopril 10 mg tablet 5 mg PO DAILY Patient Comments: TAKE 1/2 TABLET BY MOUTH EVERY DAY cyanocobalamin (vitamin B-12) 1,000 mcg tablet 1,000 mcg PO DAILY Patient Comments: TAKE 1 TABLET BY MOUTH DAILY lovastatin 40 mg tablet 40 mg PO DAILY Patient Comments: TAKE 1 TABLET BY MOUTH EVERY NIGHT aspirin 81 mg tablet,delayed release (DR/EC) 81 mg PO DAILY Discharge Instructions Additional Instructions: No heavy lifting, nothing greater than 10 pounds, for 2 weeks. Low-fat diet for 1 to 2 weeks, then resume regular diet. Remove dressings and 1 to 2 days. Patient may shower. No soaking in a tub or pool for at least 7 days. Patient should follow-up with Dr. Pena in the office in 1 to 2 weeks. Patient can take [id number] acetaminophen (Tylenol) or ibuprofen (Advil) for pain as needed. Activity:: No heavy lifting Equipment/Supplies:: No Equipment Needed Diet:: Other DS: Summary Time Spent with Patient providing and/or coordinating discharge services: Less than 30 minutes Status at Discharge Functional status at discharge: independent ambulation Overall status at discharge: patient is progressing back to baseline Mental Status: mental status grossly normal Speech and Movement: speech and movement normal Mood: congruent mood Affect: normal affect Quality:SDOH Health Related Social Needs: No Data to Display Exam Psych Mental Status: mental status grossly normal Speech and Movement: speech and movement normal Mood: congruent mood Affect: normal affect DS: Data Vitals/I&O Vitals and I&O: Vital Signs Temperature 37.1 C 03/08/24 11:22 Temperature Source Skin 03/08/24 11:22 Pulse 63 03/08/24 11:22 Pulse Rhythm Regular 03/04/24 19:30 Pulse 79 03/07/24 12:00 Respiratory Rate 15 03/08/24 11:22 Respiratory Effort Normal, Non-Labored 03/04/24 19:30 Respiratory Depth Normal 03/04/24 19:30 Respiratory Pattern Normal 03/04/24 19:30 Blood Pressure 105/59 L 03/08/24 11:22 Blood Pressure Mean 72 03/07/24 12:00 Pulse Oximetry 93 03/08/24 11:22 Respiratory End-tidal CO2 18 03/07/24 12:00 Oxygen Delivery Method Room Air 03/08/24 11:22 Oxygen Flow Rate 0 03/08/24 11:22 Pain Level 7 03/08/24 11:22 Comment pt sleeping 03/07/24 14:41 Intake & Output 03/07/24 03/08/24 03/08/24 23:59 11:59 23:59 Intake Total 1130.5 / 1370.0 220 / 220 Balance 1130.5 / 1270.0 220 / 220 Intake: IV 910.5 / 1150.0 Oral 220 / 220 220 / 220 Other: Urine Color Yellow Urine Appearance Clear Urine Odor Normal Comment pT voided on the toilet. void x 1 directly in toilet, unable to measure Emesis Description None Voiding Methods Toilet Data Completed and Pending Labs on day of discharge: Preliminary micro results at discharge 03/04/24 18:30 Blood Culture - Preliminary Blood NO GROWTH 72 HOURS 03/04/24 14:44 Blood Culture - Preliminary Blood NO GROWTH 72 HOURS PFSH All Active Problems (Updated 03/06/24 @ 11:01 by Jennifer Posadas, DO) Hypokalemia due to loss of potassium (Acute) Cholelithiasis with acute on chronic cholecystitis with biliary obstruction (Acute) Elevated cholesterol (Chronic) Hypothyroidism (acquired) (Acute) HTN (hypertension) (Chronic) Elevated lipase (Acute) Jaundice (Acute) Diabetes mellitus with ketosis (Acute) Choledocholithiasis (Acute) Surgical History (Updated 03/07/24 @ 14:56 by Negrita Dawn) Hx of cholecystectomy (~02/2024) S/P ERCP Social History (System 03/30/22 @ 09:16 by Shanelle Richmond) Smoking/Tobacco Use Status: Former Tobacco Use Smoking risk assessment performed?: Yes Alcohol Intake: never Drug use: Never Housing: house Do you feel safe at home: Yes Do you feel safe in your relationship?: Yes Time Spent with Patient Time Spent with Patient: <45 minutes Time was spent: preparing to see the patient(eg.review tests), counseling the patient and care coordination
--- NOTE | 2024-03-08 14:40 | NUR.NOTE ---
Discharge education reviewed with patient and family member. [employer] reviewed post-op instructions, which included but not limited to: 10 lb lifting restriction, low fat diet, monitoring for s/s of possible infection, proactive pain management, using ice packs to alleviate discomfort and help with inflammation, the fact patient can shower but not submerge/soak incisions in water (bathe/shower/hot tub), that patient can remove dressings in 1-2 days, discussed f/u appointments, etc. All questions answered, both patient and family member verbalized understanding of all teaching material utilizing the teach back method. All belongings sent with patient. PIV(s) previously removed. Home meds sent home with patient. Assessed surgical drsgs at time of discharge, all C/D/I, no s/s of infection. Patient stable at time of discharge.
== END 2024-03-08 14:11 | disposition home or self-care (01) | DRG 419 ==
LOC: ER 17:30 → MS 17:54
PROVIDERS: Physical Therapy Assistant; Surgery; Admitting Provider Surgery; Emergency Provider Emergency Medicine; PCP Nurse Practitioner Family; Visit Provider Surgery
PROC: 0FT44ZZ Resection of Gallbladder, Percutaneous Endoscopic Approach (ICD-10-PCS; CPT 47562; principal; 2024-03-07 07:30)
DX: K80.67 Calculus of gallbladder and bile duct with acute and chronic cholecystitis with obstruction (principal); E10.65 Type 1 diabetes mellitus with hyperglycemia; I10 Essential (primary) hypertension; E78.00 Pure hypercholesterolemia, unspecified; R74.8 Abnormal levels of other serum enzymes; E87.6 Hypokalemia
CPT/HCPCS: 47562; 00123; 36415; 80048; 80053; 80076; 82805; 83690; 87040; 93005; 96361; 96365; 99223; 99232; 99285; J1650; 74177; 81003; 81015; 83735; 84443; 84484; 85025; 85610; 85730; 87086; 88304; 93010; J0131; J0665; J0690; J1100; J1805; J1815; J2001; J2371; J2405; J2543; J2704; J3010; J3475; J3480; J3490

== ENCOUNTER 2024-10-15 13:05 | Outpatient (REF) | payer MEDICARE, SELFPAY ==
[2024-10-15 16:10] LABS: HCT 48.7 % (36.0-46.0); HGB 16.2 g/dL (11.2-15.7); MCH 29.8 pg (27.0-33.0); MCHC 33.3 % (32.0-36.0); MCV 90 fL (80-95); Platelet Count 301 10^3/uL (130-400); RBC 5.43 10^6/uL (3.93-5.22); RDW 12.1 % (11.7-14.6); RDW-SD 39.8 fL; WBC 7.72 10^3/uL (4.4-10.8)
[2024-10-15 17:32] LABS: ALT 20 U/L (14-59); AST 15 U/L (15-37); Albumin 3.6 g/dL (3.4-5.0); Alkaline Phosphatase 184 U/L (46-116); Anion Gap 11.6 mmol/L (3-11); BUN 17 mg/dL (7-18); Bilirubin, Total 0.5 mg/dL (0.2-1.0); CO2 28.4 mmol/L (21.0-32.0); CREATININE 0.7 mg/dL (0.55-1.02); Calcium 9.9 mg/dL (8.5-10.1); Calculated LDL 101 mg/dL (<100); Chloride 103 mmol/L (98-107); Cholesterol 200 mg/dL (<200); Estimated GFR 89.02 (mL/min/1.73m2); Glucose 300 mg/dL (74-106); HDL Cholesterol 66 mg/dL (>or=50); Potassium 4.8 mmol/L (3.5-5.1); Sodium 143 mmol/L (136-145); TSH 0.93 uIU/mL (0.36-3.74); Total Protein 7.3 g/dL (6.4-8.2); Triglyceride 169 mg/dL (<150)
[2024-10-15 17:33] LABS: Vitamin B12 > 2000 pg/mL (193-986)
[2024-10-15 17:34] LABS: COMMENT (LAB VIEW ONLY) 104.41 mg/dL; Microalb ug/mg Crea 20.6 ug/mg Cr
== END 2024-10-15 13:06 | disposition home or self-care (01) ==
LOC: NCHCN 13:05
PROVIDERS: PCP Nurse Practitioner Family; Visit Provider Nurse Practitioner Family
DX: E11.9 Type 2 diabetes mellitus without complications; Z79.4 Long term (current) use of insulin; Z51.81 Encounter for therapeutic drug level monitoring; E03.9 Hypothyroidism, unspecified
CPT/HCPCS: 80053; 80061; 85027; 82043; 82570; 82607; 84443